=== PATIENT | female | born 1975 | race American Indian/Alaskan Native ===

== ENCOUNTER 2016-11-04 22:51 | Emergency (ER) | payer OTHER ==
[2016-11-04] MEDS: NORMODYNE IV ONE (23:50)
[2016-11-05 07:08] LABS: Basophils % (Auto) 0.8 % (0.0-1.8); Eosinophils % (Auto) 2.7 % (0.0-4.3); Hematocrit 38.8 % (30.3-42.9); Hemoglobin 12.8 gm/dl (10.1-14.3); Mean Corpuscular HGB Conc 33 % (30-34); Mean Corpuscular Hemoglobin 31 pg (28-32); Mean Corpuscular Volume 92 fl (79-97); Platelet Count 255 K/mm3 (140-440); Red Blood Count 4.22 M/mm3 (3.65-5.03); Red Cell Distribution Width 13.8 % (13.2-15.2); White Blood Count 8.5 K/mm3 (4.5-11.0)
[2016-11-05 07:17] LABS: Anion Gap 16 mmol/L; BUN/Creatinine Ratio 11.66; Blood Urea Nitrogen 7 mg/dL (7-17); Calcium 9.2 mg/dL (8.4-10.2); Carbon Dioxide 23 mmol/L (22-30); Chloride 102.3 mmol/L (98-107); Glucose 105 mg/dL (65-100); Potassium 3.6 mmol/L (3.6-5.0); Sodium 138 mmol/L (137-145)
--- NOTE | 2016-11-05 07:22 | Emergency Department Report ---
HPI - General Chief Complaint: Urogenital-Female Time Seen by Provider: 11/05/16 07:12 - [facility] HPI: Room 3 The patient is a 41-year-old female presenting with a chief complaint of "cyst pain." The patient states for the past 3 weeks she has had intermittent headache for 1 day she has had bilateral pelvic pain consistent with her previous pain from bilateral ovarian cysts. The patient states both pains have since resolved. Patient currently denies headache or pelvic pain. Patient admitted to nausea previously but denied vomiting. Patient denied any preceding fever or trauma associated with her headache. Patient denies vaginal discharge or vaginal bleeding. Location: Head, pelvis Duration: [see above] Quality: Pain Severity: Currently 0/10 Modifying factors: [see above] Context: [see above] Mode of transportation: [not driving] ED Past Medical Hx - Past Medical History Hx Hypertension: Yes - Surgical History Additional Surgical History: c section - Family History Family history: no significant - Social History Smoking Status: Current Every Day Smoker (1 pack per day) Substance Use Type: Alcohol (occasional) - Medications Home Medications: Home Medications Medication Instructions Recorded Confirmed Last Taken Type HYDROcodone/APAP 5-325 [[place] 1 - 2 each PO Q6HR PRN #10 tablet 11/05/16 Unknown Rx 5/325] Ibuprofen [Motrin 800 MG tab] 800 mg PO Q8HR PRN #20 tablet 11/05/16 Unknown Rx ED Review of Systems ROS: Stated complaint: PELVIC PAIN Other details as noted in HPI Comment: All other systems reviewed and negative Constitutional: denies: chills, fever Eyes: denies: eye pain, eye discharge, vision change ENT: denies: ear pain, throat pain Respiratory: denies: cough, shortness of breath, wheezing Cardiovascular: denies: chest pain, palpitations Endocrine: no symptoms reported Gastrointestinal: nausea. denies: vomiting Genitourinary: denies: urgency, dysuria, discharge Musculoskeletal: denies: back pain, joint swelling, arthralgia Skin: denies: rash, lesions Neurological: headache Psychiatric: denies: anxiety, depression Hematological/Lymphatic: denies: easy bleeding, easy bruising Physical Exam - Physical Exam Vital Signs: Vital Signs 11/04/16 11/04/16 11/05/16 23:14 23:50 02:22 Temperature 98.5 F Pulse Rate 95 H 90 80 Respiratory Rate Blood Pressure 166/123 166/123 Blood Pressure 170/111 [Left] O2 Sat by Pulse 97 Oximetry 11/05/16 06:36 Temperature 98.4 F Pulse Rate 89 Respiratory 18 Rate Blood Pressure Blood Pressure 146/101 [Left] O2 Sat by Pulse 100 Oximetry Physical Exam: GENERAL: The patient is well-developed well-nourished male lying on stretcher not appearing to be in acute distress. [] HEENT: Normocephalic. Atraumatic. Extraocular motions are intact. Patient has moist mucous membranes. NECK: Supple. He can midline CHEST/LUNGS: Clear to auscultation. There is no respiratory distress noted. HEART/CARDIOVASCULAR: Regular. There is no tachycardia. There is no gallop rub or murmur. ABDOMEN: Abdomen is soft, with tenderness to palpation in the left lower quadrant. There is no rebound or guarding. Patient has normal bowel sounds. There is no abdominal distention. SKIN: There is no rash. There is no edema. There is no diaphoresis. NEURO: The patient is awake, alert, and oriented. The patient is cooperative. The patient has normal speech MUSCULOSKELETAL: There is no evidence of acute injury. ED Course Vital Signs 11/04/16 11/04/16 11/05/16 23:14 23:50 02:22 Temperature 98.5 F Pulse Rate 95 H 90 80 Respiratory Rate Blood Pressure 166/123 166/123 Blood Pressure 170/111 [Left] O2 Sat by Pulse 97 Oximetry 11/05/16 06:36 Temperature 98.4 F Pulse Rate 89 Respiratory 18 Rate Blood Pressure Blood Pressure 146/101 [Left] O2 Sat by Pulse 100 Oximetry ED Medical Decision Making - Lab Data Result diagrams: 11/05/16 06:55 11/05/16 06:55 Laboratory Tests 11/05/16 11/05/16 11/05/16 06:49 06:55 06:55 WBC 8.5 RBC 4.22 Hgb 12.8 Hct 38.8 MCV 92 MCH 31 MCHC 33 RDW 13.8 Plt Count 255 Lymph % (Auto) 32.0 [place] % (Auto) 12.1 H Eos % (Auto) 2.7 Baso % (Auto) 0.8 Lymph # 2.7 [place] # 1.0 H Eos # 0.2 Baso # 0.1 Seg Neutrophils % 52.4 Seg Neutrophils # 4.5 Sodium 138 Potassium 3.6 Chloride 102.3 Carbon Dioxide 23 Anion Gap 16 BUN 7 Creatinine 0.6 L Estimated GFR > 60 BUN/Creatinine Ratio 11.66 Glucose 105 H Calcium 9.2 Urine Color Yellow Urine Turbidity Clear Urine pH 5.0 Ur Specific [place] 1.017 Urine Protein <15 mg/dl Urine Glucose (UA) Neg Urine Ketones Neg Urine Blood Neg Urine Nitrite Neg Ur Reducing Substances Not Reportable Urine Bilirubin Neg Urine Ictotest Not Reportable Urine Urobilinogen < 2.0 Ur Leukocyte Esterase Tr Urine WBC (Auto) 4.0 Urine RBC (Auto) 3.0 U Epithel Cells (Auto) 12.0 Urine Bacteria (Auto) 1+ Urine Mucus Few Urine HCG, Qual Negative - EKG Data -: EKG Interpreted by Me EKG shows normal: sinus rhythm Rate: normal - EKG Data When compared to previous EKG there are: previous EKG unavailable Interpretation: other (no ischemic changes seen) - Radiology Data Radiology results: report reviewed (CT abdomen and pelvis), image reviewed (CT abdomen and pelvis) CT abdomen and pelvis (read by radiologist)-1.7 cm slightly complex left ovarian cyst. Uterine fibroid. No acute inflammatory processes appreciated - Differential Diagnosis ovarian cysts, diverticulitis, gastroenteritis, UTI Critical care attestation.: If time is entered above; I have spent that time in minutes in the direct care of this critically ill patient, excluding procedure time. ED Disposition Clinical Impression: Abdominal pain, Left ovarian cyst, Uterine fibroid Disposition: DISCHARGED TO HOME OR SELFCARE Is pt being admited?: No Does the pt Need Aspirin: No Condition: Stable Instructions: Ovarian Cyst (ED), Uterine Fibroids (ED) Additional Instructions: Return to the emergency department immediately should you develop worsening symptoms, fever, inability to tolerate food or liquid or any other concerns. Prescriptions: HYDROcodone/APAP 5-325 [[place] 5/325] 1 - 2 each PO Q6HR PRN #10 tablet PRN Reason: Pain Ibuprofen [Motrin 800 MG tab] 800 mg PO Q8HR PRN #20 tablet PRN Reason: Pain Referrals: YOGI LEGER MD [Staff Physician] - 3-5 Days (Dr. Leger is an [employer]. Please follow up with him for further evaluation of your ovarian cyst and uterine fibroid) DAYAMI CROWE MD [Staff Physician] - 3-5 Days (Dr. Crowe his primary physician. Please follow up with him to be established as a patient) Time of Disposition: 09:17
[2016-11-05 08:14] LABS: Bacteria,Urine 1+ /HPF (Negative); Bilirubin,Urine NEG (Negative); Blood,Urine NEG (Negative); Ketones,Urine NEG (Negative); Leukocyte Esterase,Urine TR (Negative); Mucus,Urine FEW /HPF; Nitrite,Urine NEG (Negative); Protein,Urine <15 mg/dL mg/dL (Negative); Urobilinogen,Urine < 2.0 mg/dL (<2.0)
[2016-11-05] MEDS: NACL ONE (08:41)
--- NOTE | 2016-11-05 09:07 | Cat Scan Report ---
CT SCAN OF THE ABDOMEN AND PELVIS WITH CONTRAST: HISTORY: Left lower quadrant abdominal pain. TECHNIQUE: Helical CT in 1.25mm intervals following IV contrast. Sagittal and coronal reconstructions. FINDINGS: The liver is normal in size and is without focal defect. No gallstones or biliary dilatation are noted. The spleen and pancreas demonstrate a normal size and attenuation with no evidence of abnormal mass. The kidneys are normal in size and position with no evidence of hydronephrosis or mass. The adrenal glands are normal. There is no intestinal obstruction or ascites. Normal appendix. The abdominal aorta is normal. A subtle 2 cm area of enhancement along the left lateral wall of the uterus is identified consistent with a fibroid. There is also a 1.6 cm hyperdense or enhancing area in the left adnexa. This probably represents a slightly complex left ovarian cyst. The right adnexa is unremarkable. There is no evidence of peritoneal air or fluid. There is no evidence of any abnormal masses or fluid collections within the pelvis. No adenopathy is identified. The bladder is normal. IMPRESSION: 1.7 cm slightly complex left ovarian cyst. Uterine fibroid. No acute inflammatory process is appreciated.
[2016-11-05 09:39] VITALS: BP 124/87
== END 2016-11-05 09:18 | disposition home or self-care (01) ==
LOC: ED 22:51
DX: N83.202 Unspecified ovarian cyst, left side (principal); D25.9 Leiomyoma of uterus, unspecified; R10.32 Left lower quadrant pain; I10 Essential (primary) hypertension; F17.210 Nicotine dependence, cigarettes, uncomplicated
CPT/HCPCS: 36415; 74177; 80048; 81001; 81025; 85025; 93005; 93010; 96374; 99284; Q9967

== ENCOUNTER 2017-04-25 19:15 | Emergency (ER) | payer SELFPAY ==
[2017-04-25 19:50] VITALS: BP 159/116
== END 2017-04-25 20:52 | disposition left against medical advice (07) ==
LOC: ED 19:15
DX: R07.9 Chest pain, unspecified (principal); Z53.21 Procedure and treatment not carried out due to patient leaving prior to being seen by health care provider
CPT/HCPCS: 93005; 93010

== ENCOUNTER 2017-05-05 18:25 | Inpatient (IN) | payer OTHER ==
[2017-05-05] MEDS ORDERED: NACL 0.9% 1000 ML 1,000 ML IV ONE ×3 (20:49→23:31)
[2017-05-05] MEDS ORDERED: TORADOL IV ONE (20:58)
[2017-05-05 22:13] LABS: Hematocrit 35.6 % (30.3-42.9); Hemoglobin 11.4 gm/dl (10.1-14.3); Mean Corpuscular HGB Conc 32 % (30-34); Mean Corpuscular Hemoglobin 31 pg (28-32); Mean Corpuscular Volume 97 fl (79-97); Platelet Count 198 K/mm3 (140-440); Red Blood Count 3.66 M/mm3 (3.65-5.03); Red Cell Distribution Width 14.3 % (13.2-15.2)
[2017-05-05 22:21] LABS: Albumin 2.8 g/dL (3.9-5); Albumin/Globulin Ratio 0.7 %; Bilirubin,Total 0.5 mg/dL (0.1-1.2); Calcium 8.5 mg/dL (8.4-10.2); Chloride 97.4 mmol/L (98-107); Potassium 3.4 mmol/L (3.6-5.0); Total Protein 6.8 g/dL (6.3-8.2)
[2017-05-05 22:22] LABS: White Blood Count 22.3 K/mm3 (4.5-11.0)
[2017-05-05 22:55] LABS: Basophils % (Manual) 0 % (0.0-1.8); Blastocytes % (Manual) 0 %; Eosinophils % (Manual) 0 % (0.0-4.3)
[2017-05-05 22:56] LABS: Anisocytosis 1+; Diff Status Complete; Ovalocytes Few; Platelet Estimate Consistent w Auto
--- NOTE | 2017-05-05 23:24 | Emergency Department Report ---
ED Fever HPI - General Chief Complaint: Pain General Stated Complaint: FEVER/DIZZY/BODY HURTS Time Seen by Provider: 05/05/17 20:47 Source: patient Exam Limitations: no limitations - History of Present Illness Initial Comments: 42-year-old female with a past history hypertension presents to hospital complaining of fevers, body aches, dizziness the past 4 days. patient has pain from the neck down to her back. pain is aching, rated 8/10 intensity, worse on movement and palpation, no alleviating factors. Patient denies sick contacts, recent travel, cough, sore throat, shortness of breath, nausea, vomiting, diarrhea, dysuria, or hematuria. bilateral flank, back, and right abdominal tenderness reported. pv surgical history only for . patient has not been on blood pressure medication for at least 2 years. Patient also admitted to daily alcohol use with history of alcohol withdrawal tremors. His last drink was 4 days ago per ED Review of Systems ROS: Stated complaint: FEVER/DIZZY/BODY HURTS Other details as noted in HPI Comment: All other systems reviewed and negative Other: Constitutional: as per hpi Eyes: No eye pain visual changes or discharge ENT: No ear pain or throat pain Neck: Denies pain Respiratory: Denies cough wheezing shortness of breath Cardiovascular: Denies chest pain, palpitations, syncope GI: Denies anausea, vomiting, diarrhea : Denies dysuria Musculoskeletal: as per hpi Skin: Denies rash, lesions, erythema Neurologic: Denies headache, numbness, focal weakness Psychiatric: Denies suicidal ideation, hallucinations ED Past Medical Hx - Past Medical History Previous Medical History?: Yes Hx Hypertension: Yes - Surgical History Past Surgical History?: Yes Additional Surgical History: c section - Social History Smoking Status: Current Every Day Smoker Substance Use Type: Alcohol - Medications Home Medications: Home Medications Medication Instructions Recorded Confirmed Last Taken Type HYDROcodone/APAP 5-325 [[place] 1 - 2 each PO Q6HR PRN #10 tablet 11/05/16 Unknown Rx 5/325] Ibuprofen [Motrin 800 MG tab] 800 mg PO Q8HR PRN #20 tablet 11/05/16 Unknown Rx ED Physical Exam - General Limitations: No Limitations - Other Other exam information: General: No limitations, patient is alert in no acute distress Head exam: Atraumatic, normocephalic Eyes exam: Normal appearance ENT: Moist mucous membrane, normal oropharynx Neck exam: Normal inspection, full range of motion, no meningismus/no, rigidity , nontender Respiratory exam: Clear to auscultation bilateral, no wheezes, rales, crackles Cardiovascular: Normal rate and rhythm, normal heart sounds Abdomen: Soft, nondistended, right lower, mid, and left lower tenderness, with normal bowel sounds, no rebound, or guarding Extremity: Full range of motion normal inspection no deformity Back: Normal Inspection, full range of motion, bilateral flank tenderness without midline tenderness Neurologic: Alert, oriented x3, cranial nerves intact, no motor or sensory deficit Psychiatric: normal affect, normal mood Skin: Warm, dry, intact ED Course Vital Signs 05/05/17 05/05/17 05/05/17 20:24 21:37 23:34 Temperature 97.6 F 97.9 F Pulse Rate 98 H 86 Respiratory 16 16 Rate Blood Pressure 87/59 Blood Pressure 101/61 [Left] O2 Sat by Pulse 98 100 Oximetry - Reevaluation(s) Reevaluation #1: 05/06/17 01:03 Urine collected at this time and pending. BP greater than 100 after 2 L of normal saline ED Medical Decision Making - Lab Data Result diagrams: 05/05/17 21:30 05/05/17 21:30 Lab Results 05/05/17 05/05/17 05/05/17 Range/Units 21:30 21:30 21:30 WBC 22.3 H (4.5-11.0) K/mm3 RBC 3.66 (3.65-5.03) M/mm3 Hgb 11.4 (10.1-14.3) gm/dl Hct 35.6 (30.3-42.9) % MCV 97 (79-97) fl MCH 31 (28-32) pg MCHC 32 (30-34) % RDW 14.3 (13.2-15.2) % Plt Count 198 (140-440) K/mm3 Add Manual Diff Complete Total Counted 100 Seg Neuts % (Manual) 50.0 (40.0-70.0) % Band Neutrophils % 38.0 % Lymphocytes % (Manual) 3.0 L (13.4-35.0) % Reactive Lymphs % (Man) 0 % Monocytes % (Manual) 8.0 H (0.0-7.3) % Eosinophils % (Manual) 0 (0.0-4.3) % Basophils % (Manual) 0 (0.0-1.8) % Metamyelocytes % 1.0 % Myelocytes % 0 % Promyelocytes % 0 % Blast Cells % 0 % Nucleated RBC % Not Reportable Seg Neutrophils # Man 11.2 H (1.8-7.7) K/mm3 Band Neutrophils # 8.5 K/mm3 Lymphocytes # (Manual) 0.7 L (1.2-5.4) K/mm3 Abs React Lymphs (Man) 0.0 K/mm3 Monocytes # (Manual) 1.8 H (0.0-0.8) K/mm3 Eosinophils # (Manual) 0.0 (0.0-0.4) K/mm3 Basophils # (Manual) 0.0 (0.0-0.1) K/mm3 Metamyelocytes # 0.2 K/mm3 Myelocytes # 0.0 K/mm3 Promyelocytes # 0.0 K/mm3 Blast Cells # 0.0 K/mm3 WBC Morphology Not Reportable Hypersegmented Neuts Not Reportable Hyposegmented Neuts Not Reportable Hypogranular Neuts Not Reportable Smudge Cells Not Reportable Toxic Granulation Not Reportable Toxic Vacuolation Not Reportable Dohle Bodies Not Reportable Pelger-Huet Anomaly Not Reportable [place] Rods Not Reportable Platelet Estimate Consistent w auto Clumped Platelets Not Reportable Plt Clumps, EDTA Not Reportable Large Platelets Not Reportable Giant Platelets Not Reportable Platelet Satelliting Not Reportable Plt Morphology Comment Not Reportable RBC Morphology Not Reportable Dimorphic RBCs Not Reportable Polychromasia Not Reportable Hypochromasia Not Reportable Poikilocytosis Not Reportable Anisocytosis 1+ Microcytosis Not Reportable Macrocytosis Not Reportable Spherocytes Not Reportable Pappenheimer Bodies Not Reportable Sickle Cells Not Reportable Target Cells Not Reportable Tear Drop Cells Not Reportable Ovalocytes Few Helmet Cells Not Reportable Mullins-Gann Bodies Not Reportable [place] Rings Not Reportable Karie Cells Not Reportable Bite Cells Not Reportable Crenated Cell Not Reportable Elliptocytes Not Reportable Acanthocytes (Spur) Not Reportable Rouleaux Not Reportable Hemoglobin C Crystals Not Reportable Schistocytes Not Reportable Malaria parasites Not Reportable Javier Bodies Not Reportable Hem Pathologist Commnt No VBG pH (7.320-7.420) Sodium 135 L (137-145) mmol/L Potassium 3.4 L (3.6-5.0) mmol/L Chloride 97.4 L (98-107) mmol/L Carbon Dioxide 20 L (22-30) mmol/L Anion Gap 21 mmol/L BUN 25 H (7-17) mg/dL Creatinine 2.0 H (0.7-1.2) mg/dL Estimated GFR 33 ml/min BUN/Creatinine Ratio 13 % Glucose 116 H (65-100) mg/dL Lactic Acid 2.70 H* (0.7-2.0) mmol/L Calcium 8.5 (8.4-10.2) mg/dL Magnesium (1.7-2.3) mg/dL Total Bilirubin 0.50 (0.1-1.2) mg/dL AST 71 H (5-40) units/L ALT 77 H (7-56) units/L Alkaline Phosphatase 85 (35-129) units/L Total Protein 6.8 (6.3-8.2) g/dL Albumin 2.8 L (3.9-5) g/dL Albumin/Globulin Ratio 0.7 % HCG, Qual (Negative) 05/05/17 05/05/17 05/05/17 Range/Units 21:30 21:30 21:30 WBC (4.5-11.0) K/mm3 RBC (3.65-5.03) M/mm3 Hgb (10.1-14.3) gm/dl Hct (30.3-42.9) % MCV (79-97) fl MCH (28-32) pg MCHC (30-34) % RDW (13.2-15.2) % Plt Count (140-440) K/mm3 Add Manual Diff Total Counted Seg Neuts % (Manual) (40.0-70.0) % Band Neutrophils % % Lymphocytes % (Manual) (13.4-35.0) % Reactive Lymphs % (Man) % Monocytes % (Manual) (0.0-7.3) % Eosinophils % (Manual) (0.0-4.3) % Basophils % (Manual) (0.0-1.8) % Metamyelocytes % % Myelocytes % % Promyelocytes % % Blast Cells % % Nucleated RBC % Seg Neutrophils # Man (1.8-7.7) K/mm3 Band Neutrophils # K/mm3 Lymphocytes # (Manual) (1.2-5.4) K/mm3 Abs React Lymphs (Man) K/mm3 Monocytes # (Manual) (0.0-0.8) K/mm3 Eosinophils # (Manual) (0.0-0.4) K/mm3 Basophils # (Manual) (0.0-0.1) K/mm3 Metamyelocytes # K/mm3 Myelocytes # K/mm3 Promyelocytes # K/mm3 Blast Cells # K/mm3 WBC Morphology Hypersegmented Neuts Hyposegmented Neuts Hypogranular Neuts Smudge Cells Toxic Granulation Toxic Vacuolation Dohle Bodies Pelger-Huet Anomaly Estella Rods Platelet Estimate Clumped Platelets Plt Clumps, EDTA Large Platelets Giant Platelets Platelet Satelliting Plt Morphology Comment RBC Morphology Dimorphic RBCs Polychromasia Hypochromasia Poikilocytosis Anisocytosis Microcytosis Macrocytosis Spherocytes Pappenheimer Bodies Sickle Cells Target Cells Tear Drop Cells Ovalocytes Helmet Cells Mullins-Gann Bodies [place] Cells Bite Cells Crenated Cell Elliptocytes Acanthocytes (Spur) Rouleaux Hemoglobin C Crystals Schistocytes Malaria parasites Javier Bodies Hem Pathologist Commnt VBG pH 7.354 (7.320-7.420) Sodium (137-145) mmol/L Potassium (3.6-5.0) mmol/L Chloride (98-107) mmol/L Carbon Dioxide (22-30) mmol/L Anion Gap mmol/L BUN (7-17) mg/dL Creatinine (0.7-1.2) mg/dL Estimated GFR ml/min BUN/Creatinine Ratio % Glucose (65-100) mg/dL Lactic Acid (0.7-2.0) mmol/L Calcium (8.4-10.2) mg/dL Magnesium 2.00 (1.7-2.3) mg/dL Total Bilirubin (0.1-1.2) mg/dL AST (5-40) units/L ALT (7-56) units/L Alkaline Phosphatase (35-129) units/L Total Protein (6.3-8.2) g/dL Albumin (3.9-5) g/dL Albumin/Globulin Ratio % HCG, Qual Negative (Negative) - Radiology Data Radiology results: report reviewed CT pelvis noncontrast: No renal calculi. Perinephric stranding is seen on the right side suggestive of pyelonephritis in the proper clinical setting - Medical Decision Making Patient be admitted to hospital for pyelonephritis with signs of early sepsis. Blood pressure has improved with IV fluids. Zosyn ordered. Cultures pending. Delay in urine since patient has been able to produce a significant urine output after 2 L of normal saline. 3 L total given. Patient also has acute renal insufficiency compared to previous labs earlier this month. One dose of by mouth potassium also ordered for hypokalemia. Magnesium is normal. Elevated LFTs likely secondary to chronic daily alcohol use. - Differential Diagnosis sepsis, UTI, appendicitis, diverticulitis, PID, viral syndrome Critical Care Time: No Critical care attestation.: If time is entered above; I have spent that time in minutes in the direct care of this critically ill patient, excluding procedure time. ED Disposition Clinical Impression: Pyelonephritis, Sepsis, Acute renal insufficiency, Daily consumption of alcohol , LFT elevation, Hypokalemia Disposition: OP ADMIT IP TO THIS HOSP Is pt being admited?: Yes Condition: Stable Time of Disposition: 00:59 (Dr Johns/hosp)
--- NOTE | 2017-05-05 23:48 | Cat Scan Report ---
FINAL REPORT EXAM: CT ABDOMEN PELVIS WO CON HISTORY: lower abd pain R\T\gt; : TECHNIQUE: Serial axial images through the abdomen and pelvis with coronal and sagittal reconstruction. PRIORS: CT abdomen pelvis from 05/05/2017 FINDINGS: Lung bases are clear. No pleural effusion is seen. No focal hepatic lesion is identified. Pancreas appears normal. Spleen appears normal. Adrenal glands appear normal. Gastric diverticulum is seen arising from the posterior aspect of the proximal stomach. No renal calculi are identified. No stones are seen along the course of ureters. There is asymmetric perinephric stranding on the right side. Aorta is normal in caliber. No gross abnormality is seen in the bladder. No gross abnormality is seen in the uterus or adnexa. No free fluid. Scattered diverticula are seen arising from the colon. Appendix appears normal. No acute osseous abnormality is identified. IMPRESSION: 1. No renal calculi are identified. 2. Paranephric stranding is seen on the right side. Findings could indicate pyelonephritis in the proper clinical setting. Correlation with laboratory values is necessary.
[2017-05-06] MEDS ORDERED: ZOSYN/NS 4.5GM/100ML 4.5 GM/100 ML VIAL IV ONE (00:12)
[2017-05-06] MEDS ORDERED: K-DUR PO ONE ×2 (00:55→14:00)
[2017-05-06 01:32] LABS: Bilirubin,Urine NEG (Negative); Blood,Urine MOD (Negative); Ketones,Urine TR mg/dL (Negative); Leukocyte Esterase,Urine LG (Negative); Mucus,Urine FEW /HPF; Nitrite,Urine POS (Negative); Urobilinogen,Urine < 2.0 mg/dL (<2.0)
[2017-05-06] MEDS ORDERED: MILK OF MAGNESIA PO PRN (04:19)
[2017-05-06] MEDS ORDERED: ZOFRAN IV PRN (04:19)
[2017-05-06] MEDS ORDERED: DULCOLAX PR PRN (04:19)
--- NOTE | 2017-05-06 06:06 | History and Physical Report ---
History of Present Illness Date of examination: 05/06/17 Date of admission: 05/06/17 04:19 History of present illness: 42-year-old woman history of hypertension comes emergency room with complaints of lower back pain hurting her but started on , also complaining of suprapubic tenderness, fever and chills. Today she developed right flank pain, denies dysuria, frequency Review Of Systems: Constitutional: no weight loss Ears, eyes, nose, mouth and throat: no nasal congestion, no nasal discharge, no sinus pressure, blurry vision, diplopia Neck: No neck pain or rigidity. Cardiovascular: chest pain, orthopnea, palpitations Respiratory: No shortness of breath, cough Gastrointestinal: abdominal pain, hematochezia Genitourinary : no dysuria, frequency , hematuria Musculoskeletal: no muscle ache Integumentary: no rash, no pruritis Neurological: no parathesias, focal weakness Endocrine: no cold or heat intolerance, no polyuria or polydipsia Hematologic/Lymphatic: no easy bruising, no easy bleeding, no gland swelling Allergic/Immunologic: no urticaria, no angioedema. PAST MEDICAL HISTORY:hypertension PAST SURGICAL HISTORY: FAMILY HISTORY:hypertension SOCIAL HISTORY: Smoked 2 packs of cigarettes a day, social alcohol, no drugs Medications and Allergies Allergies Allergy/AdvReac Type Severity Reaction Status Date / Time No Known Allergies Allergy Verified 04/25/17 19:41 Home Medications Medication Instructions Recorded Confirmed Last Taken Type HYDROcodone/APAP 5-325 [[place] 1 - 2 each PO Q6HR PRN #10 tablet 11/05/16 Unknown Rx 5/325] Ibuprofen [Motrin 800 MG tab] 800 mg PO Q8HR PRN #20 tablet 11/05/16 Unknown Rx Active Meds: Active Medications Acetaminophen (Tylenol) 650 mg PO Q4H PRN PRN Reason: Pain MILD(1-3)/Fever >100.5/[place] Bisacodyl (Dulcolax) 10 mg [place] QDAY PRN PRN Reason: Constipation unrelieved by MOM Enoxaparin Sodium (Lovenox) 30 mg SUB-Q QDAY [place] Sodium Chloride (Nacl 0.9% 1000 Ml) 1,000 mls @ 125 mls/hr IV DIRECT [place] Ceftriaxone Sodium (Rocephin/Ns 1 Gm/50 Ml) 1 gm in 50 mls @ 100 mls/hr IV Q24HR [place] PRN Reason: Protocol Magnesium Hydroxide (Milk Of Magnesia) 30 ml PO Q4H PRN PRN Reason: Constipation Ondansetron HCl (Zofran) 4 mg IV Q8H PRN PRN Reason: N/V unrelieved by Reglan Oxycodone/Acetaminophen (Percocet 5/325) 1 tab PO Q6H PRN PRN Reason: Pain, Moderate (4-6) Exam - Physical Exam Narrative exam: Gen. appearance: Patient lying in bed in no acute distress HEENT: Normocephalic/atraumatic, pupils equal round reactive to light, extra alkaline movement intact, no scleral icterus, no JVD or thyromegaly or nodule, neck is supple, mucous membrane moist, no erythema or exudate Heart: S1-S2, regular rate and rhythm Lungs: Clear to auscultation bilateral breathing comfortable Abdomen: Positive bowel sounds, nontender, nondistended, no organomegaly Extremities:+ Right CVA tenderness, No edema, cyanosis, clubbing Neuro:: Oriented 3 , cranial nerves II-12 intact, speech, motor intact Skin: No rash, nodules, warm dry - Constitutional Vitals: Temp Pulse Resp BP Pulse Ox 97.9 F 86 16 101/61 100 05/05/17 23:34 05/05/17 23:34 05/05/17 23:34 05/05/17 23:34 05/05/17 23:34 Results - Labs CBC & Chem 7: 05/05/17 21:30 05/05/17 21:30 - Imaging and Cardiology CT scan - abdomen: report reviewed CT scan - pelvis: report reviewed Assessment and Plan Assessment Septic shock Pyelonephritis Acute renal failure Plan Admit to medicine Start IV fluid, IV Rocephin and follow cultures, kidney function DVT prophylaxis
[2017-05-06] MEDS ORDERED: TYLENOL ONE (06:23)
[2017-05-06] MEDS ORDERED: NACL 0.9% 1000 ML 1,000 ML ONE (06:24)
[2017-05-06] MEDS: TYLENOL PO PRN ×3 (06:32→23:38)
[2017-05-06] MEDS: NACL 0.9% 1000 ML 1,000 ML IV SCH ×2 (06:33→13:56)
[2017-05-06] MEDS ORDERED: NACL 0.9% 500 ML 500 ML IV ONE (06:42)
[2017-05-06] MEDS ORDERED: NACL 0.9% 500 ML 500 ML ONE (06:44)
[2017-05-06] MEDS ORDERED: LOVENOX SUB-Q SCH (10:00)
[2017-05-06] MEDS: ROCEPHIN/NS 1 GM/50 ML 1 GM/50 ML BAG IV SCH (10:18)
[2017-05-06 11:00] LABS: Chloride 103.5 mmol/L (98-107); Potassium 3.4 mmol/L (3.6-5.0)
[2017-05-06] MEDS ORDERED: ATIVAN IV PRN ×2 (13:17)
[2017-05-06] MEDS: PERCOCET 5/325 PO PRN ×2 (14:00→21:49)
--- NOTE | 2017-05-06 16:43 | Event Note ---
Date: 05/06/17 patient seen and examined, stable at this time. will continue to monitor. she also states that she drinks alcohol and often has tremors when not drinking. will start on CIWA protocol. Renal function is improving.
[2017-05-07] MEDS: NACL 0.9% 1000 ML 1,000 ML IV SCH ×3 (01:58→15:32)
[2017-05-07] MEDS: TYLENOL PO PRN ×2 (05:34→15:24)
[2017-05-07 05:39] LABS: Basophils % (Auto) 0.2 % (0.0-1.8); Eosinophils % (Auto) 0.2 % (0.0-4.3); Hematocrit 34.4 % (30.3-42.9); Hemoglobin 11.7 gm/dl (10.1-14.3); Mean Corpuscular HGB Conc 34 % (30-34); Mean Corpuscular Hemoglobin 32 pg (28-32); Mean Corpuscular Volume 95 fl (79-97); Platelet Count 247 K/mm3 (140-440); Red Blood Count 3.62 M/mm3 (3.65-5.03); Red Cell Distribution Width 15.1 % (13.2-15.2); White Blood Count 17.2 K/mm3 (4.5-11.0)
[2017-05-07 05:58] LABS: Anion Gap 18 mmol/L; BUN/Creatinine Ratio 14; Blood Urea Nitrogen 13 mg/dL (7-17); Calcium 8.9 mg/dL (8.4-10.2); Carbon Dioxide 21 mmol/L (22-30); Chloride 104.3 mmol/L (98-107); Glucose 86 mg/dL (65-100); Sodium 139 mmol/L (137-145)
[2017-05-07] MEDS ORDERED: MORPHINE IM ONE (06:35)
[2017-05-07 07:23] LABS: Creatine Kinase 22 units/L (30-135)
[2017-05-07 07:39] LABS: Creatine Kinase MB < 1.0 ng/mL (0.0-4.0)
--- NOTE | 2017-05-07 09:55 | Progress Note ---
Assessment and Plan Assessment and plan: Patient is a 42-year-old woman history of hypertension, etoh and tobacco dependence admitted with sepsis secondary to Pylonephritis after she presented to the ER with complaints of lower back pain hurting her but started on , also complaining of suprapubic tenderness, fever and chills and subsequently developed right flank pain, denies dysuria, frequency Septic shock * POA * Required multiple volume resuscitation * Still with intermittent fever. We'll obtain infectious disease input. * Leukocytosis improvement shock resolved. Tolerating by mouth. * Continue supportive care, IV abx Pyelonephritis * Continue Rocephin, still with low grade fever, await culture results. Peritoneal Irritation * Secondary to Pyelonephritis * Supportive care Acute Kidney injury Secondary to Vasomotor Nephropathy * Continue fluids. * Resolved ETOH dependence with hx of Tremors when sober * Continue CIWA protocol Tobacco Abuse * Extensive counselling provided to quit patient wants to quite ETOH 1st. 15 mins spent on counselling * Mild to Moderate Protein calorie malnutrition * Nutrition consult DVT/GI prophy Plan discussed with patient and family in detail History Interval history: Patient is examined in no acute distress though running fever despite improved lap problems. Denies any nausea vomiting or diarrhea. Hospitalist Physical - Physical exam Narrative exam: VITAL SIGNS: Reviewed. GENERAL: The patient appeared well nourished and normally developed. Vital signs as documented. HEAD: No signs of head trauma. EYES: Pupils are equal. Extraocular motions intact. EARS: Hearing grossly intact. MOUTH: Oropharynx is normal. NECK: No adenopathy, no JVD. CHEST: Chest with clear breath sounds bilaterally. No wheezes, rales, or rhonchi. CARDIAC: Regular rate and rhythm. S1 and S2, without murmurs, gallops, or rubs. VASCULAR: No Edema. Peripheral pulses normal and equal in all extremities. ABDOMEN: Soft, left flank tenderness.. No sign of distention. No rebound or guarding, and no masses palpated. Bowel Sounds normal. MUSCULOSKELETAL: Good range of motion of all major joints. Extremities without clubbing, cyanosis or edema. NEUROLOGIC EXAM: Alert and oriented x 3. No focal sensory or strength deficits. Speech normal. Follows commands. PSYCHIATRIC: Mood normal. SKIN: No rash or lesions. - Constitutional Vitals: Temp Pulse Resp BP Pulse Ox 100.0 F H 105 H 20 123/82 98 05/07/17 07:12 05/07/17 07:12 05/07/17 07:12 05/07/17 07:12 05/07/17 07:12 Results - Labs CBC & Chem 7: 05/07/17 05:03 05/07/17 05:03 Labs: Laboratory Last Values WBC 17.2 K/mm3 (4.5-11.0) H 05/07/17 05:03 RBC 3.62 M/mm3 (3.65-5.03) L 05/07/17 05:03 Hgb 11.7 gm/dl (10.1-14.3) 05/07/17 05:03 Hct 34.4 % (30.3-42.9) 05/07/17 05:03 MCV 95 fl (79-97) 05/07/17 05:03 MCH 32 pg (28-32) 05/07/17 05:03 MCHC 34 % (30-34) 05/07/17 05:03 RDW 15.1 % (13.2-15.2) 05/07/17 05:03 Plt Count 247 K/mm3 (140-440) 05/07/17 05:03 Lymph % (Auto) 6.7 % (13.4-35.0) L 05/07/17 05:03 [place] % (Auto) 11.7 % (0.0-7.3) H 05/07/17 05:03 Eos % (Auto) 0.2 % (0.0-4.3) 05/07/17 05:03 Baso % (Auto) 0.2 % (0.0-1.8) 05/07/17 05:03 Lymph # 1.2 K/mm3 (1.2-5.4) 05/07/17 05:03 [place] # 2.0 K/mm3 (0.0-0.8) H 05/07/17 05:03 Eos # 0.0 K/mm3 (0.0-0.4) 05/07/17 05:03 Baso # 0.0 K/mm3 (0.0-0.1) 05/07/17 05:03 Add Manual Diff Complete 05/05/17 21:30 Total Counted 100 05/05/17 21:30 Seg Neutrophils % 81.2 % (40.0-70.0) H 05/07/17 05:03 Seg Neuts % (Manual) 50.0 % (40.0-70.0) 05/05/17 21:30 Band Neutrophils % 38.0 % 05/05/17 21:30 Lymphocytes % (Manual) 3.0 % (13.4-35.0) L 05/05/17 21:30 Reactive Lymphs % (Man) 0 % 05/05/17 21:30 Monocytes % (Manual) 8.0 % (0.0-7.3) H 05/05/17 21:30 Eosinophils % (Manual) 0 % (0.0-4.3) 05/05/17 21:30 Basophils % (Manual) 0 % (0.0-1.8) 05/05/17 21:30 Metamyelocytes % 1.0 % 05/05/17 21:30 Myelocytes % 0 % 05/05/17 21:30 Promyelocytes % 0 % 05/05/17 21:30 Blast Cells % 0 % 05/05/17 21:30 Nucleated RBC % Not Reportable 05/05/17 21:30 Seg Neutrophils # 14.0 K/mm3 (1.8-7.7) H 05/07/17 05:03 Seg Neutrophils # Man 11.2 K/mm3 (1.8-7.7) H 05/05/17 21:30 Band Neutrophils # 8.5 K/mm3 05/05/17 21:30 Lymphocytes # (Manual) 0.7 K/mm3 (1.2-5.4) L 05/05/17 21:30 Abs React Lymphs (Man) 0.0 K/mm3 05/05/17 21:30 Monocytes # (Manual) 1.8 K/mm3 (0.0-0.8) H 05/05/17 21:30 Eosinophils # (Manual) 0.0 K/mm3 (0.0-0.4) 05/05/17 21:30 Basophils # (Manual) 0.0 K/mm3 (0.0-0.1) 05/05/17 21:30 Metamyelocytes # 0.2 K/mm3 05/05/17 21:30 Myelocytes # 0.0 K/mm3 05/05/17 21:30 Promyelocytes # 0.0 K/mm3 05/05/17 21:30 Blast Cells # 0.0 K/mm3 05/05/17 21:30 WBC Morphology Not Reportable 05/05/17 21:30 Hypersegmented Neuts Not Reportable 05/05/17 21:30 Hyposegmented Neuts Not Reportable 05/05/17 21:30 Hypogranular Neuts Not Reportable 05/05/17 21:30 Smudge Cells Not Reportable 05/05/17 21:30 Toxic Granulation Not Reportable 05/05/17 21:30 Toxic Vacuolation Not Reportable 05/05/17 21:30 Dohle Bodies Not Reportable 05/05/17 21:30 Pelger-Huet Anomaly Not Reportable 05/05/17 21:30 Estella Rods Not Reportable 05/05/17 21:30 Platelet Estimate Consistent w auto 05/05/17 21:30 Clumped Platelets Not Reportable 05/05/17 21:30 Plt Clumps, EDTA Not Reportable 05/05/17 21:30 Large Platelets Not Reportable 05/05/17 21:30 Giant Platelets Not Reportable 05/05/17 21:30 Platelet Satelliting Not Reportable 05/05/17 21:30 Plt Morphology Comment Not Reportable 05/05/17 21:30 RBC Morphology Not Reportable 05/05/17 21:30 Dimorphic RBCs Not Reportable 05/05/17 21:30 Polychromasia Not Reportable 05/05/17 21:30 Hypochromasia Not Reportable 05/05/17 21:30 Poikilocytosis Not Reportable 05/05/17 21:30 Anisocytosis 1+ 05/05/17 21:30 Microcytosis Not Reportable 05/05/17 21:30 Macrocytosis Not Reportable 05/05/17 21:30 Spherocytes Not Reportable 05/05/17 21:30 Pappenheimer Bodies Not Reportable 05/05/17 21:30 Sickle Cells Not Reportable 05/05/17 21:30 Target Cells Not Reportable 05/05/17 21:30 Tear Drop Cells Not Reportable 05/05/17 21:30 Ovalocytes Few 05/05/17 21:30 Helmet Cells Not Reportable 05/05/17 21:30 [place] Bodies Not Reportable 05/05/17 21:30 [place] Rings Not Reportable 05/05/17 21:30 [place] Cells Not Reportable 05/05/17 21:30 Bite Cells Not Reportable 05/05/17 21:30 Crenated Cell Not Reportable 05/05/17 21:30 Elliptocytes Not Reportable 05/05/17 21:30 Acanthocytes (Spur) Not Reportable 05/05/17 21:30 Rouleaux Not Reportable 05/05/17 21:30 Hemoglobin C Crystals Not Reportable 05/05/17 21:30 Schistocytes Not Reportable 05/05/17 21:30 Malaria parasites Not Reportable 05/05/17 21:30 Javier Bodies Not Reportable 05/05/17 21:30 Hem Pathologist Commnt No 05/05/17 21:30 VBG pH 7.354 (7.320-7.420) 05/05/17 21:30 Sodium 139 mmol/L (137-145) 05/07/17 05:03 Potassium 4.0 mmol/L (3.6-5.0) 05/07/17 05:03 Chloride 104.3 mmol/L (98-107) 05/07/17 05:03 Carbon Dioxide 21 mmol/L (22-30) L 05/07/17 05:03 Anion Gap 18 mmol/L 05/07/17 05:03 BUN 13 mg/dL (7-17) 05/07/17 05:03 Creatinine 0.9 mg/dL (0.7-1.2) 05/07/17 05:03 Estimated GFR > 60 ml/min 05/07/17 05:03 BUN/Creatinine Ratio 14 % 05/07/17 05:03 Glucose 86 mg/dL (65-100) 05/07/17 05:03 Lactic Acid 1.80 mmol/L (0.7-2.0) 05/07/17 05:03 Calcium 8.9 mg/dL (8.4-10.2) 05/07/17 05:03 Magnesium 2.00 mg/dL (1.7-2.3) 05/05/17 21:30 Total Bilirubin 0.50 mg/dL (0.1-1.2) 05/05/17 21:30 AST 71 units/L (5-40) H 05/05/17 21:30 ALT 77 units/L (7-56) H 05/05/17 21:30 Alkaline Phosphatase 85 units/L (35-129) 05/05/17 21:30 Total Creatine Kinase 22 units/L (30-135) L 05/07/17 05:03 CK-MB (CK-2) < 1.0 ng/mL (0.0-4.0) 05/07/17 05:03 CK-MB (CK-2) Rel Index 4.5 (0-4) H 05/07/17 05:03 Total Protein 6.8 g/dL (6.3-8.2) 05/05/17 21:30 Albumin 2.8 g/dL (3.9-5) L 05/05/17 21:30 Albumin/Globulin Ratio 0.7 % 05/05/17 21:30 HCG, Qual Negative (Negative) 05/05/17 21:30 Urine Color Yellow (Yellow) 05/05/17 01:08 Urine Turbidity Clear (Clear) 05/05/17 01:08 Urine pH 5.0 (5.0-7.0) 05/05/17 01:08 Ur Specific [place] 1.015 (1.003-1.030) 05/05/17 01:08 Urine Protein 100 mg/dl mg/dL (Negative) 05/05/17 01:08 Urine Glucose (UA) Neg mg/dL (Negative) 05/05/17 01:08 Urine Ketones Tr mg/dL (Negative) 05/05/17 01:08 Urine Blood Mod (Negative) 05/05/17 01:08 Urine Nitrite Pos (Negative) 05/05/17 01:08 Urine Bilirubin Neg (Negative) 05/05/17 01:08 Urine Urobilinogen < 2.0 mg/dL (<2.0) 05/05/17 01:08 Ur Leukocyte Esterase Lg (Negative) 05/05/17 01:08 Urine WBC (Auto) 85.0 /HPF (0.0-6.0) H 05/05/17 01:08 Urine RBC (Auto) 4.0 /HPF (0.0-6.0) 05/05/17 01:08 U Epithel Cells (Auto) 3.0 /HPF (0-13.0) 05/05/17 01:08 Urine WBC Clumps Few /HPF 05/05/17 01:08 Ur Transition Epith Cell < 1 /HPF 05/05/17 01:08 Urine Mucus Few /HPF 05/05/17 01:08
[2017-05-07] MEDS: ROCEPHIN/NS 1 GM/50 ML 1 GM/50 ML BAG IV SCH (10:31)
[2017-05-07] MEDS: LOVENOX SUB-Q SCH (10:33)
[2017-05-07] MEDS ORDERED: Fluarix Quad 2017-2018(36 MOS+) IM ONE (12:00)
[2017-05-08] MEDS: NACL 0.9% 1000 ML 1,000 ML IV SCH ×3 (00:15→17:28)
[2017-05-08] MEDS: TYLENOL PO PRN (00:17)
[2017-05-08 06:18] LABS: Hematocrit 30.7 % (30.3-42.9); Hemoglobin 10.8 gm/dl (10.1-14.3); Mean Corpuscular HGB Conc 35 % (30-34); Mean Corpuscular Hemoglobin 33 pg (28-32); Mean Corpuscular Volume 93 fl (79-97); Platelet Count 295 K/mm3 (140-440); Red Blood Count 3.32 M/mm3 (3.65-5.03); Red Cell Distribution Width 15.4 % (13.2-15.2); White Blood Count 13.6 K/mm3 (4.5-11.0)
--- NOTE | 2017-05-08 07:51 | Progress Note ---
Assessment and Plan Assessment and plan: Patient is a 42-year-old woman history of hypertension, etoh and tobacco dependence admitted with sepsis secondary to Pylonephritis after she presented to the ER with complaints of lower back pain hurting her but started on , also complaining of suprapubic tenderness, fever and chills and subsequently developed right flank pain, denies dysuria, frequency Severe Sepsis * Still with intermittent fever. Tmax 102 05/07/17 @15:12. * Await infectious disease input. * Leukocytosis improvement , Clinically improving. Tolerating by mouth. * Continue supportive care, IV abx. Urine culture now showing GNR. If fever persist will obtain Repeat Imaging to ensure no abscess developing although I doubt this will be the case. Septic shock * POA * Resolved Pyelonephritis * Continue Rocephin, still with low grade fever, await culture results. Peritoneal Irritation * Secondary to Pyelonephritis * Supportive care Acute Kidney injury Secondary to Vasomotor Nephropathy * Continue fluids. * Resolved Elevated BP * No through Hypertension hx, we'll stop the hydralazine when necessary. Continue to monitor for withdrawal symptoms. ETOH dependence with hx of Tremors when sober * Continue CIWA protocol Tobacco Abuse * Extensive counselling provided to quit patient wants to quite ETOH 1st. 15 mins spent on counselling * Mild to Moderate Protein calorie malnutrition * Nutrition consult DVT/GI prophy Plan discussed with patient and family in detail History Interval history: Patient is examined in no acute distress though running fever despite improved lab. Denies any nausea vomiting or diarrhea. Hospitalist Physical - Physical exam Narrative exam: VITAL SIGNS: Reviewed. GENERAL: The patient appeared well nourished and normally developed. Vital signs as documented. HEAD: No signs of head trauma. EYES: Pupils are equal. Extraocular motions intact. EARS: Hearing grossly intact. MOUTH: Oropharynx is normal. NECK: No adenopathy, no JVD. CHEST: Chest with clear breath sounds bilaterally. No wheezes, rales, or rhonchi. CARDIAC: Regular rate and rhythm. S1 and S2, without murmurs, gallops, or rubs. VASCULAR: No Edema. Peripheral pulses normal and equal in all extremities. ABDOMEN: Soft, left flank tenderness.. No sign of distention. No rebound or guarding, and no masses palpated. Bowel Sounds normal. MUSCULOSKELETAL: Good range of motion of all major joints. Extremities without clubbing, cyanosis or edema. NEUROLOGIC EXAM: Alert and oriented x 3. No focal sensory or strength deficits. Speech normal. Follows commands. PSYCHIATRIC: Mood normal. SKIN: No rash or lesions. - Constitutional Vitals: Temp Pulse Resp BP Pulse Ox 99.4 F 93 H 24 162/106 95 05/07/17 21:04 05/07/17 21:04 05/07/17 21:04 05/07/17 21:04 05/07/17 21:04 Results - Labs CBC & Chem 7: 05/08/17 05:09 05/07/17 05:03 Labs: Laboratory Last Values WBC 13.6 K/mm3 (4.5-11.0) H 05/08/17 05:09 RBC 3.32 M/mm3 (3.65-5.03) L 05/08/17 05:09 Hgb 10.8 gm/dl (10.1-14.3) 05/08/17 05:09 Hct 30.7 % (30.3-42.9) 05/08/17 05:09 MCV 93 fl (79-97) 05/08/17 05:09 MCH 33 pg (28-32) H 05/08/17 05:09 MCHC 35 % (30-34) H 05/08/17 05:09 RDW 15.4 % (13.2-15.2) H 05/08/17 05:09 Plt Count 295 K/mm3 (140-440) 05/08/17 05:09 Lymph % (Auto) 6.7 % (13.4-35.0) L 05/07/17 05:03 [place] % (Auto) 11.7 % (0.0-7.3) H 05/07/17 05:03 Eos % (Auto) 0.2 % (0.0-4.3) 05/07/17 05:03 Baso % (Auto) 0.2 % (0.0-1.8) 05/07/17 05:03 Lymph # 1.2 K/mm3 (1.2-5.4) 05/07/17 05:03 [place] # 2.0 K/mm3 (0.0-0.8) H 05/07/17 05:03 Eos # 0.0 K/mm3 (0.0-0.4) 05/07/17 05:03 Baso # 0.0 K/mm3 (0.0-0.1) 05/07/17 05:03 Add Manual Diff Complete 05/05/17 21:30 Total Counted 100 05/05/17 21:30 Seg Neutrophils % 81.2 % (40.0-70.0) H 05/07/17 05:03 Seg Neuts % (Manual) 50.0 % (40.0-70.0) 05/05/17 21:30 Band Neutrophils % 38.0 % 05/05/17 21:30 Lymphocytes % (Manual) 3.0 % (13.4-35.0) L 05/05/17 21:30 Reactive Lymphs % (Man) 0 % 05/05/17 21:30 Monocytes % (Manual) 8.0 % (0.0-7.3) H 05/05/17 21:30 Eosinophils % (Manual) 0 % (0.0-4.3) 05/05/17 21:30 Basophils % (Manual) 0 % (0.0-1.8) 05/05/17 21:30 Metamyelocytes % 1.0 % 05/05/17 21:30 Myelocytes % 0 % 05/05/17 21:30 Promyelocytes % 0 % 05/05/17 21:30 Blast Cells % 0 % 05/05/17 21:30 Nucleated RBC % Not Reportable 05/05/17 21:30 Seg Neutrophils # 14.0 K/mm3 (1.8-7.7) H 05/07/17 05:03 Seg Neutrophils # Man 11.2 K/mm3 (1.8-7.7) H 05/05/17 21:30 Band Neutrophils # 8.5 K/mm3 05/05/17 21:30 Lymphocytes # (Manual) 0.7 K/mm3 (1.2-5.4) L 05/05/17 21:30 Abs React Lymphs (Man) 0.0 K/mm3 05/05/17 21:30 Monocytes # (Manual) 1.8 K/mm3 (0.0-0.8) H 05/05/17 21:30 Eosinophils # (Manual) 0.0 K/mm3 (0.0-0.4) 05/05/17 21:30 Basophils # (Manual) 0.0 K/mm3 (0.0-0.1) 05/05/17 21:30 Metamyelocytes # 0.2 K/mm3 05/05/17 21:30 Myelocytes # 0.0 K/mm3 05/05/17 21:30 Promyelocytes # 0.0 K/mm3 05/05/17 21:30 Blast Cells # 0.0 K/mm3 05/05/17 21:30 WBC Morphology Not Reportable 05/05/17 21:30 Hypersegmented Neuts Not Reportable 05/05/17 21:30 Hyposegmented Neuts Not Reportable 05/05/17 21:30 Hypogranular Neuts Not Reportable 05/05/17 21:30 Smudge Cells Not Reportable 05/05/17 21:30 Toxic Granulation Not Reportable 05/05/17 21:30 Toxic Vacuolation Not Reportable 05/05/17 21:30 Dohle Bodies Not Reportable 05/05/17 21:30 Pelger-Huet Anomaly Not Reportable 05/05/17 21:30 Estella Rods Not Reportable 05/05/17 21:30 Platelet Estimate Consistent w auto 05/05/17 21:30 Clumped Platelets Not Reportable 05/05/17 21:30 Plt Clumps, EDTA Not Reportable 05/05/17 21:30 Large Platelets Not Reportable 05/05/17 21:30 Giant Platelets Not Reportable 05/05/17 21:30 Platelet Satelliting Not Reportable 05/05/17 21:30 Plt Morphology Comment Not Reportable 05/05/17 21:30 RBC Morphology Not Reportable 05/05/17 21:30 Dimorphic RBCs Not Reportable 05/05/17 21:30 Polychromasia Not Reportable 05/05/17 21:30 Hypochromasia Not Reportable 05/05/17 21:30 Poikilocytosis Not Reportable 05/05/17 21:30 Anisocytosis 1+ 05/05/17 21:30 Microcytosis Not Reportable 05/05/17 21:30 Macrocytosis Not Reportable 05/05/17 21:30 Spherocytes Not Reportable 05/05/17 21:30 Pappenheimer Bodies Not Reportable 05/05/17 21:30 Sickle Cells Not Reportable 05/05/17 21:30 Target Cells Not Reportable 05/05/17 21:30 Tear Drop Cells Not Reportable 05/05/17 21:30 Ovalocytes Few 05/05/17 21:30 Helmet Cells Not Reportable 05/05/17 21:30 Mull[place] Bodies Not Reportable 05/05/17 21:30 [place] Rings Not Reportable 05/05/17 21:30 [place] Cells Not Reportable 05/05/17 21:30 Bite Cells Not Reportable 05/05/17 21:30 Crenated Cell Not Reportable 05/05/17 21:30 Elliptocytes Not Reportable 05/05/17 21:30 Acanthocytes (Spur) Not Reportable 05/05/17 21:30 Rouleaux Not Reportable 05/05/17 21:30 Hemoglobin C Crystals Not Reportable 05/05/17 21:30 Schistocytes Not Reportable 05/05/17 21:30 Malaria parasites Not Reportable 05/05/17 21:30 Javier Bodies Not Reportable 05/05/17 21:30 Hem Pathologist Commnt No 05/05/17 21:30 VBG pH 7.354 (7.320-7.420) 05/05/17 21:30 Sodium 139 mmol/L (137-145) 05/07/17 05:03 Potassium 4.0 mmol/L (3.6-5.0) 05/07/17 05:03 Chloride 104.3 mmol/L (98-107) 05/07/17 05:03 Carbon Dioxide 21 mmol/L (22-30) L 05/07/17 05:03 Anion Gap 18 mmol/L 05/07/17 05:03 BUN 13 mg/dL (7-17) 05/07/17 05:03 Creatinine 0.9 mg/dL (0.7-1.2) 05/07/17 05:03 Estimated GFR > 60 ml/min 05/07/17 05:03 BUN/Creatinine Ratio 14 % 05/07/17 05:03 Glucose 86 mg/dL (65-100) 05/07/17 05:03 Lactic Acid 1.80 mmol/L (0.7-2.0) 05/07/17 05:03 Calcium 8.9 mg/dL (8.4-10.2) 05/07/17 05:03 Magnesium 2.00 mg/dL (1.7-2.3) 05/05/17 21:30 Total Bilirubin 0.50 mg/dL (0.1-1.2) 05/05/17 21:30 AST 71 units/L (5-40) H 05/05/17 21:30 ALT 77 units/L (7-56) H 05/05/17 21:30 Alkaline Phosphatase 85 units/L (35-129) 05/05/17 21:30 Total Creatine Kinase 22 units/L (30-135) L 05/07/17 05:03 CK-MB (CK-2) < 1.0 ng/mL (0.0-4.0) 05/07/17 05:03 CK-MB (CK-2) Rel Index 4.5 (0-4) H 05/07/17 05:03 Total Protein 6.8 g/dL (6.3-8.2) 05/05/17 21:30 Albumin 2.8 g/dL (3.9-5) L 05/05/17 21:30 Albumin/Globulin Ratio 0.7 % 05/05/17 21:30 HCG, Qual Negative (Negative) 05/05/17 21:30 Urine Color Yellow (Yellow) 05/05/17 01:08 Urine Turbidity Clear (Clear) 05/05/17 01:08 Urine pH 5.0 (5.0-7.0) 05/05/17 01:08 Ur Specific [place] 1.015 (1.003-1.030) 05/05/17 01:08 Urine Protein 100 mg/dl mg/dL (Negative) 05/05/17 01:08 Urine Glucose (UA) Neg mg/dL (Negative) 05/05/17 01:08 Urine Ketones Tr mg/dL (Negative) 05/05/17 01:08 Urine Blood Mod (Negative) 05/05/17 01:08 Urine Nitrite Pos (Negative) 05/05/17 01:08 Urine Bilirubin Neg (Negative) 05/05/17 01:08 Urine Urobilinogen < 2.0 mg/dL (<2.0) 05/05/17 01:08 Ur Leukocyte Esterase Lg (Negative) 05/05/17 01:08 Urine WBC (Auto) 85.0 /HPF (0.0-6.0) H 05/05/17 01:08 Urine RBC (Auto) 4.0 /HPF (0.0-6.0) 05/05/17 01:08 U Epithel Cells (Auto) 3.0 /HPF (0-13.0) 05/05/17 01:08 Urine WBC Clumps Few /HPF 05/05/17 01:08 Ur Transition Epith Cell < 1 /HPF 05/05/17 01:08 Urine Mucus Few /HPF 05/05/17 01:08
[2017-05-08] MEDS: ROCEPHIN/NS 1 GM/50 ML 1 GM/50 ML BAG IV SCH (10:31)
[2017-05-08] MEDS: LOVENOX SUB-Q SCH (10:36)
[2017-05-08] MEDS ORDERED: Fluarix Quad 2017-2018(36 MOS+) IM ONE (12:00)
[2017-05-08] MEDS: APRESOLINE IV PRN ×2 (12:25→17:28)
--- NOTE | 2017-05-08 14:26 | Consultation ---
History of Present Illness - Reason for Consult Consult date: 05/08/17 pyelonephritis Requesting physician: ADELA TELLEZ - History of Present Illness 42 year old female with history of hypertension admitted on 05/05/2017 to right- sided abdominal pain and subjective fever. Patient reports that pain started 5 days before admission, initially on the right side, mild, however it became progressively worse. Patient also reports subjective fever and some chills. Denies any nausea, vomiting and diarrhea. Denies any urinary symptoms. Denies any previous stones. In the emergency room, initial temperature was 100.6 then went up to 102.9. Heart rate 98, blood pressure 87/54. Initial white count was 22. Creatinine 2. Lactic acid was 2.7 and then went to [place]. Urianalysis was positive for leukocyte esterase and 85 white blood cells. Microbiology: Blood cultures: 05/05 ngtd Urine cultures: 05/05 Current Antimicrobials: Ceftriaxone 05/06 Past History Past Medical History: No medical history, hypertension Past Surgical History: No surgical history Social history: , full code. denies: alcohol abuse, prescription drug abuse, IV drug use Medications and Allergies Allergies Allergy/AdvReac Type Severity Reaction Status Date / Time No Known Allergies Allergy Verified 04/25/17 19:41 Home Medications Medication Instructions Recorded Confirmed Last Taken Type HYDROcodone/APAP 5-325 [[place] 1 - 2 each PO Q6HR PRN #10 tablet 11/05/16 Unknown Rx 5/325] Ibuprofen [Motrin 800 MG tab] 800 mg PO Q8HR PRN #20 tablet 11/05/16 05/06/17 Unknown Rx Active Meds: Active Medications Acetaminophen (Tylenol) 650 mg PO Q4H PRN PRN Reason: Pain MILD(1-3)/Fever >100.5/[place] Last Admin: 05/08/17 00:17 Dose: 650 mg Bisacodyl (Dulcolax) 10 mg NM QDAY PRN PRN Reason: Constipation unrelieved by MOM Enoxaparin Sodium (Lovenox) 40 mg SUB-Q QDAY@1000 [place] Last Admin: 05/08/17 10:36 Dose: Not Given Hydralazine HCl (Apresoline) 10 mg IV Q4HR PRN PRN Reason: Hypertension Last Admin: 05/08/17 12:25 Dose: 10 mg Sodium Chloride (Nacl 0.9% 1000 Ml) 1,000 mls @ 150 mls/hr IV DIRECT [place] Last Admin: 05/08/17 10:29 Dose: 150 mls/hr Ceftriaxone Sodium (Rocephin/Ns 1 Gm/50 Ml) 1 gm in 50 mls @ 100 mls/hr IV Q24HR [place] PRN Reason: Protocol Last Admin: 05/08/17 10:31 Dose: 100 mls/hr Lorazepam (Ativan) 2 mg IV Q1HR PRN PRN Reason: CIWA-Ar 8-15 Lorazepam (Ativan) 4 mg IV Q1HR PRN PRN Reason: CIWA-Ar 16-25 Magnesium Hydroxide (Milk Of Magnesia) 30 ml PO Q4H PRN PRN Reason: Constipation Ondansetron HCl (Zofran) 4 mg IV Q8H PRN PRN Reason: N/V unrelieved by Reglan Oxycodone/Acetaminophen (Percocet 5/325) 1 tab PO Q6H PRN PRN Reason: Pain, Moderate (4-6) Last Admin: 05/06/17 21:49 Dose: 1 tab Review of Systems All systems: negative (right flank pain) Physical Examination - Physical Exam Narrative exam: General appearance: Alert in NAD, conversant Eyes: anicteric sclerae, moist conjunctivae; no lid-lag; PERRLA HENT: Atraumatic; oropharynx clear with moist mucous membranes and no mucosal ulcerations/no oral thrush; normal hard and soft palate. Normal external ears. Neck: Trachea midline; supple, no thyromegaly or lymphadenopathy Lungs: CTA, with normal respiratory effort and no intercostal retractions CV: RRR, no murmurs Abdomen: Soft, +right CVT Extremities: No peripheral edema or extremity lymphadenopathy Skin: Normal temperature, turgor and texture; no rash, ulcers or subcutaneous nodules Psych: Appropriate affect, alert and oriented to person, place and time. Neuro: alert and oriented x 3. Moving all extermities Lines: No CVL / PICC - Constitutional Vitals: Vital Signs Temp Pulse Resp BP Pulse Ox 99.4 F 92 H 20 171/114 99 05/08/17 12:02 05/08/17 12:25 05/08/17 12:02 05/08/17 12:25 05/08/17 12:02 Temperature -Last 24 Hours Temperature 99.4 F Temperature 100.2 F Temperature 99.4 F Temperature 102.1 F Results - Labs CBC & Chem 7: 05/08/17 05:09 05/07/17 05:03 Labs: Abnormal lab results 05/08/17 Range/Units 05:09 WBC 13.6 H (4.5-11.0) K/mm3 RBC 3.32 L (3.65-5.03) M/mm3 MCH 33 H (28-32) pg MCHC 35 H (30-34) % RDW 15.4 H (13.2-15.2) % Assessment and Plan Assessment: 1) Sepsis: Present on admission, manifested by fever, tachycardia, hypotension, leukocytosis, increased lactate. Etiology most likely UTI. 2) Right pyelonephritis: -Urine cx + GNR -CT + right paranephric stranding Plan: -follow-up blood cultures, urine culture -obtain C-reactive protein (CRP) -continue ceftriaxone -upon discharge will do levaquin 750 mg PO q day for 10 days if isolate sensitive to levaquin -monitor fever/leukocytosis Thank you Dr Tellez for your consultation, will follow up with you. Nanette Franco MD Infectious Diseases Specialist [facility] M [phone] O [phone]
[2017-05-09] MEDS: NACL 0.9% 1000 ML 1,000 ML IV SCH ×2 (00:33→06:19)
[2017-05-09] MEDS: PERCOCET 5/325 PO PRN (00:50)
[2017-05-09 07:40] LABS: Hemoglobin 10.5 gm/dl (10.1-14.3); Mean Corpuscular HGB Conc 34 % (30-34); Mean Corpuscular Hemoglobin 31 pg (28-32); Mean Corpuscular Volume 92 fl (79-97); Platelet Count 372 K/mm3 (140-440); Red Blood Count 3.36 M/mm3 (3.65-5.03); Red Cell Distribution Width 15.5 % (13.2-15.2); White Blood Count 10.7 K/mm3 (4.5-11.0)
--- NOTE | 2017-05-09 09:08 | Discharge Summary ---
Providers - Providers Date of Admission: 05/06/17 04:19 Attending physician: ADELA MCDONOUGH MD 05/07/17 15:57 Consult to Physician [CONS] Routine Consulting Provider: MAYURI CERRATO Reason For Exam: sepsis Place consult to:: DR. BROUSSARD Notified:: DR. BROUSSARD Phone number called:: IN HOUSE Was contact made?: Yes If yes, spoke with:: DR. BROUSSARD Time called:: 09:53 Comment:: PAT AWARE 05/08/17 07:48 Consult to Dietitian/Nutrition [CONS] Routine Physician Instructions: Reason For Exam: Reason for Consult: Poor oral intake Primary care physician: [facility] Hospitalization Reason for admission: sepsis Condition: Stable Hospital course: Patient is a 42-year-old woman history of hypertension, etoh and tobacco dependence admitted with sepsis secondary to Pylonephritis after she presented to the ER with complaints of lower back pain hurting her but started on , also complaining of suprapubic tenderness, fever and chills and subsequently developed right flank pain, denies dysuria, frequency Severe Sepsis * patient was admitted with fever, tachycardia, hypotension, leukocytosis, increased lactate * was treated with Rocephin and cultures grew ecoli and is discharged on Levaquin to complete 10 * Continue supportive care, IV abx. Urine culture now showing GNR. * CT + right paranephric stranding Septic shock * Resolved Pyelonephritis * Treated with abx as noted above Peritoneal Irritation * Secondary to Pyelonephritis * Supportive care Was provided Acute Kidney injury Secondary to Vasomotor Nephropathy * Resolved Elevated BP * No through Hypertension hx, we'll stop the hydralazine when necessary. Continue to monitor for withdrawal symptoms. ETOH dependence with hx of Tremors when sober * Counselling provided Continue CIWA protocol Tobacco Abuse * Extensive counselling provided to quit patient wants to quite ETOH 1st. 15 mins spent on counselling Mild to Moderate Protein calorie malnutrition * Nutrition consult Disposition: TO HOME OR SELFCARE Time spent for discharge: 35 mins Core Measure Documentation - Palliative Care Palliative Care/ Comfort Measures: Not Applicable - Core Measures Any of the following diagnoses?: none - VTE Discharge Requirements Deep Vein Thrombosis/Pulmonary Embolism Present on Admission: No Exam - Physical Exam Narrative exam: VITAL SIGNS: Reviewed. GENERAL: The patient appeared well nourished and normally developed. Vital signs as documented. HEAD: No signs of head trauma. EYES: Pupils are equal. Extraocular motions intact. EARS: Hearing grossly intact. MOUTH: Oropharynx is normal. NECK: No adenopathy, no JVD. CHEST: Chest with clear breath sounds bilaterally. No wheezes, rales, or rhonchi. CARDIAC: Regular rate and rhythm. S1 and S2, without murmurs, gallops, or rubs. VASCULAR: No Edema. Peripheral pulses normal and equal in all extremities. ABDOMEN: Soft, non tender. No sign of distention. No rebound or guarding, and no masses palpated. Bowel Sounds normal. MUSCULOSKELETAL: Good range of motion of all major joints. Extremities without clubbing, cyanosis or edema. NEUROLOGIC EXAM: Alert and oriented x 3. No focal sensory or strength deficits. Speech normal. Follows commands. PSYCHIATRIC: Mood normal. SKIN: No rash or lesions. - Constitutional Vitals: Temp Pulse Resp BP Pulse Ox 98.0 F 89 18 161/109 97 05/08/17 23:38 05/08/17 23:38 05/08/17 23:38 05/08/17 23:38 05/08/17 23:38 Plan Activity: advance as tolerated, fall precautions Diet: low fat Special Instructions: record daily weights, record daily BP diary, smoking cessation, other (etoh cessation) Follow up with: PRIMARY CARE, [Primary Care Provider] - 7 Days Prescriptions: Hydrochlorothiazide [HCTZ] 25 mg PO QDAY #30 tablet Levofloxacin [Levaquin] 750 mg PO QDAY #7 tablet traMADol [Ultram] 50 mg PO Q6HR PRN #14 tablet PRN Reason: Pain
[2017-05-09 09:25] VITALS: BP 170/104
[2017-05-09] MEDS ORDERED: APRESOLINE ONE (09:32)
[2017-05-09] MEDS: ROCEPHIN/NS 1 GM/50 ML 1 GM/50 ML BAG IV SCH (09:45)
[2017-05-09] MEDS ORDERED: APRESOLINE PO SCH (10:00)
[2017-05-09] MEDS ORDERED: HCTZ PO SCH (10:00)
[2017-05-09] MEDS: LOVENOX SUB-Q SCH (11:00)
[2017-05-09] MEDS ORDERED: APRESOLINE PO ONE (11:09)
--- NOTE | 2017-05-09 13:29 | Progress Note ---
Assessment and Plan Assessment: 1) Sepsis: resovled. Etiology most likely UTI. CRP=19 2) Right pyelonephritis: -Urine cx + E coli -CT + right paranephric stranding Plan: -continue ceftriaxone -upon discharge will do levaquin 750 mg PO q day for 10 days I am signing off Thank you Dr Tellez for your consultation, will follow up with you. Nanette Franco MD Infectious Diseases Specialist [facility] ([facility]) M [phone] O [phone] Subjective Date of service: 05/09/17 Principal diagnosis: pyelonepritis Interval history: feels better, no fever overnight. Microbiology: Blood cultures: 05/05 ngtd Urine cultures: 05/05 E coli sensitive to levaquin Current Antimicrobials: Ceftriaxone 05/06 Objective - Exam Narrative Exam: General appearance: Alert in NAD, conversant Eyes: anicteric sclerae, moist conjunctivae; no lid-lag; PERRLA HENT: Atraumatic; oropharynx clear with moist mucous membranes and no mucosal ulcerations/no oral thrush; normal hard and soft palate. Normal external ears. Neck: Trachea midline; supple, no thyromegaly or lymphadenopathy Lungs: CTA, with normal respiratory effort and no intercostal retractions CV: RRR, no murmurs Abdomen: Soft, +right CVT Extremities: No peripheral edema or extremity lymphadenopathy Skin: Normal temperature, turgor and texture; no rash, ulcers or subcutaneous nodules Psych: Appropriate affect, alert and oriented to person, place and time. Neuro: alert and oriented x 3. Moving all extermities Lines: No CVL / PICC - Constitutional Vitals: Vital Signs Temp Pulse Resp BP Pulse Ox 98.9 F 82 18 170/104 93 05/09/17 08:23 05/09/17 08:23 05/09/17 08:23 05/09/17 08:23 05/09/17 08:23 Temperature -Last 24 Hours Temperature 98.9 F Temperature 98.0 F Temperature 99.9 F - Labs CBC & Chem 7: 05/09/17 06:26 05/07/17 05:03 Labs: Abnormal lab results 05/08/17 05/09/17 Range/Units 15:01 06:26 RBC 3.36 L (3.65-5.03) M/mm3 RDW 15.5 H (13.2-15.2) % C-Reactive Protein 19.90 H (0.00-1.30) mg/dL
== END 2017-05-09 11:00 | disposition home or self-care (01) | DRG 871 ==
LOC: ED 18:25 → 3A 05-06 04:19
PROVIDERS: ADMIT Internal Medicine; ATTEND Internal Medicine
DX: A41.9 Sepsis, unspecified organism (principal); R65.21 Severe sepsis with septic shock; N17.0 Acute kidney failure with tubular necrosis; N12 Tubulo-interstitial nephritis, not specified as acute or chronic; E44.0 Moderate protein-calorie malnutrition; I10 Essential (primary) hypertension; F17.210 Nicotine dependence, cigarettes, uncomplicated; E87.6 Hypokalemia; Z82.49 Family history of ischemic heart disease and other diseases of the circulatory system; Z71.9 Counseling, unspecified; F10.20 Alcohol dependence, uncomplicated; Z68.28 Body mass index [BMI] 28.0-28.9, adult
CPT/HCPCS: 36415; 74176; 80048; 80053; 81001; 82140; 82550; 82553; 82805; 83735; 84703; 85007; 85025; 85027; 86140; 87040; 87076; 87086; 87186; 90686; 93005; 93010; 96361; 96365; 96375; 99285; 99406; J0360; J0696; J1650; J1885; J2270; J2543; J7030; J7040

== ENCOUNTER 2017-11-01 20:56 | Emergency (ER) | payer OTHER ==
[2017-11-01] MEDS ORDERED: ASPIRIN PO ONE (21:42)
[2017-11-01 22:08] LABS: Basophils # (Auto) 0.1 K/mm3 (0.0-0.1); Eosinophils # (Auto) 0.3 K/mm3 (0.0-0.4); Eosinophils % (Auto) 3.3 % (0.0-4.3); Hematocrit 42.4 % (30.3-42.9); Hemoglobin 14.6 gm/dl (10.1-14.3); Lymphocytes % (Auto) 39.2 % (13.4-35.0); Mean Corpuscular HGB Conc 35 % (30-34); Mean Corpuscular Hemoglobin 32 pg (28-32); Mean Corpuscular Volume 93 fl (79-97); Monocytes # (Auto) 0.7 K/mm3 (0.0-0.8); Monocytes % (Auto) 8.6 % (0.0-7.3); Platelet Count 288 K/mm3 (140-440); Red Blood Count 4.56 M/mm3 (3.65-5.03); Red Cell Distribution Width 13.5 % (13.2-15.2)
[2017-11-01 22:18] LABS: BUN/Creatinine Ratio 21; Bilirubin,Urine NEG (Negative); Blood Urea Nitrogen 15 mg/dL (7-17); Blood,Urine NEG (Negative); Calcium 9.5 mg/dL (8.4-10.2); Color,Urine Yellow (Yellow); Hemolysis Index 7; Mucus,Urine FEW /HPF; Protein,Urine <15 mg/dL mg/dL (Negative); Urobilinogen,Urine < 2.0 mg/dL (<2.0)
[2017-11-01 22:23] LABS: HCG Qualitative,Urine Negative (Negative)
[2017-11-02] MEDS ORDERED: LOPRESSOR PO ONE (02:09)
[2017-11-02 02:15] VITALS: BP 139/86
[2017-11-02] MEDS ORDERED: TORADOL IM ONE ×2 (02:19→02:24)
--- NOTE | 2017-11-02 02:21 | Emergency Department Report ---
ED Chest Pain HPI - General Chief Complaint: Chest Pain Stated Complaint: CHEST PAIN,HIGH BLOOD PRESSURE Time Seen by Provider: 11/02/17 01:55 Source: patient Mode of arrival: Ambulatory Limitations: No Limitations - History of Present Illness Initial Comments: Patient was also complaining of a headache all around the head of moderate intensity and nonradiating with no aggravating or relieving factors. She denies any neck pain or fever. Patient was also complaining of palpitations. MD Complaint: chest pain Onset/Timin (day) -: Gradual Onset: during rest Pain Location: left chest Pain Radiation: none Severity: mild Severity scale (0 -10): 0 Quality: aching Consistency: intermittent Improves With: nothing Worsens With: nothing Treatments Prior to Arrival: none - Related Data Previous Rx's Medication Instructions Recorded Last Taken Type Hydrochlorothiazide [HCTZ] 25 mg PO QDAY #30 tablet 05/09/17 Unknown Rx Levofloxacin [Levaquin] 750 mg PO QDAY #7 tablet 05/09/17 Unknown Rx traMADol [Ultram] 50 mg PO Q6HR PRN #14 tablet 05/09/17 Unknown Rx Metoprolol [Lopressor TAB] 12.5 mg PO BID #30 tablet 11/02/17 Unknown Rx Allergies Allergy/AdvReac Type Severity Reaction Status Date / Time No Known Allergies Allergy Verified 04/25/17 19:41 Heart Score - HEART Score History: Slightly suspicious EKG: Non-specific Age: < 45 Risk factors: 1-2 risk factors Troponin: < normal limit HEART Score: 2 ED Review of Systems ROS: Stated complaint: CHEST PAIN,HIGH BLOOD PRESSURE Other details as noted in HPI Comment: All other systems reviewed and negative ED Past Medical Hx - Past Medical History Hx Hypertension: Yes Additional medical history: palpitations - Surgical History Additional Surgical History: c section,tubiligation - Social History Smoking Status: Current Every Day Smoker Substance Use Type: Alcohol - Medications Home Medications: Home Medications Medication Instructions Recorded Confirmed Last Taken Type Hydrochlorothiazide [HCTZ] 25 mg PO QDAY #30 tablet 05/09/17 Unknown Rx Levofloxacin [Levaquin] 750 mg PO QDAY #7 tablet 05/09/17 Unknown Rx traMADol [Ultram] 50 mg PO Q6HR PRN #14 tablet 05/09/17 Unknown Rx Metoprolol [Lopressor TAB] 12.5 mg PO BID #30 tablet 11/02/17 Unknown Rx ED Physical Exam - General Limitations: No Limitations General appearance: alert, in no apparent distress - Head Head exam: Present: atraumatic, normocephalic - Eye Eye exam: Present: normal appearance - ENT ENT exam: Present: mucous membranes moist - Neck Neck exam: Present: normal inspection - Respiratory Respiratory exam: Present: normal lung sounds bilaterally. Absent: respiratory distress - Cardiovascular Cardiovascular Exam: Present: regular rate, normal rhythm. Absent: systolic murmur, diastolic murmur, rubs, gallop - GI/Abdominal GI/Abdominal exam: Present: soft, normal bowel sounds. Absent: tenderness - Rectal Rectal exam: Present: deferred - Back Exam Back exam: Present: normal inspection - Neurological Exam Neurological exam: Present: alert, oriented X3 - Psychiatric Psychiatric exam: Present: normal affect, normal mood - Skin Skin exam: Present: warm, dry, intact, normal color. Absent: rash ED Course Vital Signs 11/01/17 11/01/17 11/02/17 20:56 21:26 01:45 Temperature 99.1 F 99.1 F 98.8 F Pulse Rate 96 H 94 H 83 Respiratory 18 18 17 Rate Blood Pressure 163/102 163/102 Blood Pressure 127/97 [Left] O2 Sat by Pulse 98 97 99 Oximetry 11/02/17 02:14 Temperature Pulse Rate 87 Respiratory Rate Blood Pressure 139/86 Blood Pressure [Left] O2 Sat by Pulse Oximetry ED Medical Decision Making - Lab Data Result diagrams: 11/01/17 21:46 11/01/17 21:46 - EKG Data -: EKG Interpreted by Me EKG shows normal: sinus rhythm (rate of 88), axis (normal), intervals (normal), QRS complexes (normal. pvc's. ventricular bigeminy), ST-T waves (non specific) Critical care attestation.: If time is entered above; I have spent that time in minutes in the direct care of this critically ill patient, excluding procedure time. ED Disposition Clinical Impression: Atypical chest pain, Palpitation, Ventricular bigeminy seen on sole skiver Disposition: TO HOME OR SELFCARE Is pt being admited?: No Does the pt Need Aspirin: No Condition: Stable Instructions: Chest Pain (ED), Palpitations (ED) Prescriptions: Metoprolol [Lopressor TAB] 12.5 mg PO BID #30 tablet Referrals: GISSELLE PINEDA MD [Primary Care Provider] - 2-3 Days Time of Disposition: 02:22 Print Language: UPPER SORBIAN
== END 2017-11-02 02:38 | disposition home or self-care (01) ==
LOC: ED 20:56
DX: R07.89 Other chest pain (principal); R00.2 Palpitations; I10 Essential (primary) hypertension; F17.200 Nicotine dependence, unspecified, uncomplicated
CPT/HCPCS: 36415; 80048; 81001; 81025; 84484; 85025; 93005; 93010; 96372; 99284; J1885

== ENCOUNTER 2018-02-05 15:15 | Emergency (ER) | payer OTHER ==
[2018-02-05 16:08] LABS: BUN/Creatinine Ratio 17; Blood Urea Nitrogen 10 mg/dL (7-17); Calcium 9.2 mg/dL (8.4-10.2); Hemolysis Index 14
[2018-02-05 16:10] LABS: Basophils # (Auto) 0.1 K/mm3 (0.0-0.1); Eosinophils # (Auto) 0.2 K/mm3 (0.0-0.4); Eosinophils % (Auto) 3.4 % (0.0-4.3); Hematocrit 41.2 % (30.3-42.9); Hemoglobin 14.1 gm/dl (10.1-14.3); Lymphocytes # (Auto) 1.9 K/mm3 (1.2-5.4); Lymphocytes % (Auto) 32.4 % (13.4-35.0); Mean Corpuscular HGB Conc 34 % (30-34); Mean Corpuscular Hemoglobin 31 pg (28-32); Mean Corpuscular Volume 91 fl (79-97); Monocytes # (Auto) 0.6 K/mm3 (0.0-0.8); Monocytes % (Auto) 10.3 % (0.0-7.3); Platelet Count 247 K/mm3 (140-440); Red Blood Count 4.53 M/mm3 (3.65-5.03); Red Cell Distribution Width 13.3 % (13.2-15.2)
[2018-02-05] MEDS ORDERED: NORCO 5/325 PO ONE (22:59)
--- NOTE | 2018-02-05 23:13 | Emergency Department Report ---
HPI - General Chief Complaint: Chest Pain Time Seen by Provider: 02/05/18 22:53 - HPI HPI: Room 21 The patient is a 42-year-old female presenting with a chief complaint of chest pain. Patient states this morning she developed substernal chest pain described as pushing an intermittent in nature. Patient states she got short of breath and diaphoretic with the pain but denies nausea/vomiting. The patient was admitted to the hospital by myself 2 weeks ago for the same and had a negative exercise treadmill test. Patient states she's never had a cardiac catheterization. The patient states her pain is a 5/10 currently Location: Chest Duration: [See above] Quality: Pressure Severity: 5/10 Modifying factors: [see above] Context: [see above] Mode of transportation: [not driving] ED Past Medical Hx - Past Medical History Previous Medical History?: Yes Hx Hypertension: Yes Hx Arthritis: Yes Additional medical history: palpitations, ovarian cysts - Surgical History Past Surgical History?: Yes Additional Surgical History: c section,tubiligation - Family History Family history: no significant - Social History Smoking Status: Current Every Day Smoker (1/2 pack per day) Substance Use Type: None - Medications Home Medications: Home Medications Medication Instructions Recorded Confirmed Last Taken Type Hydrochlorothiazide [HCTZ] 25 mg PO QDAY #30 tablet 01/20/18 Unknown Rx Metoprolol [Lopressor TAB] 12.5 mg PO BID #30 tablet 01/20/18 Unknown Rx HYDROcodone/APAP 5-325 [[place] 1 each PO Q6HR PRN #7 tablet 02/06/18 Unknown Rx 5/325] ED Review of Systems ROS: Stated complaint: CHEST PAIN Other details as noted in HPI Constitutional: diaphoresis Eyes: denies: eye pain ENT: denies: throat pain Respiratory: shortness of breath Cardiovascular: chest pain Endocrine: no symptoms reported Gastrointestinal: denies: abdominal pain, nausea, vomiting Genitourinary: denies: dysuria Musculoskeletal: denies: back pain Neurological: denies: headache Physical Exam - Physical Exam Vital Signs: Vital Signs 02/05/18 15:31 Temperature 98.4 F Pulse Rate 83 Respiratory 18 Rate Blood Pressure 177/109 O2 Sat by Pulse 98 Oximetry Physical Exam: GENERAL: The patient is well-developed well-nourished female lying on stretcher not appearing to be in acute distress. [] HEENT: Normocephalic. Atraumatic. Extraocular motions are intact. Patient has moist mucous membranes. NECK: Supple. Trachea midline CHEST/LUNGS: Clear to auscultation. There is no respiratory distress noted. HEART/CARDIOVASCULAR: Regular. There is no tachycardia. There is no gallop rub or murmur. ABDOMEN: Abdomen is soft, nontender. Patient has normal bowel sounds. There is no abdominal distention. SKIN: There is no rash. There is no diaphoresis. NEURO: The patient is awake, alert, and oriented. The patient is cooperative. The patient has normal speech MUSCULOSKELETAL: There is no evidence of acute injury. ED Course Vital Signs 02/05/18 15:31 Temperature 98.4 F Pulse Rate 83 Respiratory 18 Rate Blood Pressure 177/109 O2 Sat by Pulse 98 Oximetry - Consultations Consultation #1: 02/05/18 23:55 Cardiology paged 02/05/18 23:[address] Cabrales- states if CT chest negative and does not reveal coronary calcifications the patient may be discharged home to follow up in the office 08:30 tomorrow ED Medical Decision Making - Lab Data Result diagrams: 02/05/18 15:46 02/05/18 15:46 Laboratory Tests 02/05/18 02/05/18 02/05/18 15:46 15:46 18:22 WBC 5.9 RBC 4.53 Hgb 14.1 Hct 41.2 MCV 91 MCH 31 MCHC 34 RDW 13.3 Plt Count 247 Lymph % (Auto) 32.4 [place] % (Auto) 10.3 H Eos % (Auto) 3.4 Baso % (Auto) 1.0 Lymph # 1.9 [place] # 0.6 Eos # 0.2 Baso # 0.1 Seg Neutrophils % 52.9 Seg Neutrophils # 3.1 D-Dimer Sodium 138 Potassium 3.0 L Chloride 101.2 Carbon Dioxide 24 Anion Gap 16 BUN 10 Creatinine 0.6 L Estimated GFR > 60 BUN/Creatinine Ratio 17 Glucose 84 Calcium 9.2 Troponin T < 0.010 < 0.010 02/05/18 02/05/18 21:34 21:34 WBC RBC Hgb Hct MCV MCH MCHC RDW Plt Count Lymph % (Auto) [place] % (Auto) Eos % (Auto) Baso % (Auto) Lymph # [place] # Eos # Baso # Seg Neutrophils % Seg Neutrophils # D-Dimer 272.05 H Sodium Potassium Chloride Carbon Dioxide Anion Gap BUN Creatinine Estimated GFR BUN/Creatinine Ratio Glucose Calcium Troponin T < 0.010 - EKG Data -: EKG Interpreted by Me EKG shows normal: sinus rhythm Rate: normal - EKG Data When compared to previous EKG there are: no significant change, previous EKG unavailable Interpretation: unchanged when compared t (01/20/2018) - Radiology Data Radiology results: report reviewed (CT chest), image reviewed (CT chest) [facility] [address] [place] [address] Cat Scan Report Signed Patient: IGNACIA CUMMINGS MR#: [id number] : 1975 Acct:[id number] Age/Sex: 42 / F ADM Date: 02/05/18 Loc: ED Attending Dr: Ordering Physician: RONY MESSINA MD Date of Service: 02/06/18 Procedure(s): CT angio chest Accession Number(s): [id number] cc: RONY MESSINA MD FINAL REPORT PROCEDURE: CT ANGIO CHEST TECHNIQUE: Computerized tomographic angiography of the chest was performed after the IV injection of iodinated nonionic contrast including image processing. The image data was postprocessed using 2-dimensional multiplanar reformatted (MPR) and 3-dimensional (MIP and/or volume rendered) techniques. HISTORY: chest pain, shortness of breath COMPARISON: No prior studies are available for comparison. FINDINGS: Heart and pericardium: Normal. Thoracic aorta: Normal. Pulmonary vasculature: Normal. Lymph nodes: No enlarged thoracic lymph nodes. Lungs: Lungs are clear. No infiltrate, effusion or pneumothorax. Central airway is patent.. Pleural space: No effusion, thickening, or pneumothorax. Musculoskeletal structures: No significant abnormality. Upper abdominal structures: No significant abnormality. IMPRESSION: There is no evidence of pulmonary arterial emboli. The lungs are clear without infiltrate, effusion or pneumothorax. Transcribed By: [facility] Dictated By: VERÓNICA TORRES MD Electronically Authenticated By: VERÓNICA TORRES MD Signed Date/Time: 02/06/18113 DD/ 3 TD/TT: 02/06/18113 - Differential Diagnosis ACS, PE, GERD, pericarditis, costochondritis Critical care attestation.: If time is entered above; I have spent that time in minutes in the direct care of this critically ill patient, excluding procedure time. ED Disposition Clinical Impression: Chest pain, Hypokalemia Disposition: - TO HOME OR SELFCARE Is pt being admited?: No Does the pt Need Aspirin: No Condition: Stable Instructions: Chest Pain (ED) Additional Instructions: Return to the emergency department immediately should you develop worsening symptoms, fever, inability to tolerate food or liquid or any other concerns. Prescriptions: HYDROcodone/APAP 5-325 [[place] 5/325] 1 each PO Q6HR PRN #7 tablet PRN Reason: Pain Referrals: KAYLEE CABRALES MD [Staff Physician] - 02/06/18 8:30 am (Please call your pulmonary disease specialist's office to confirm you can be seen this morning at 08:30 for further evaluation) Time of Disposition: 01:34
[2018-02-05] MEDS ORDERED: K-DUR PO ONE (23:15)
--- NOTE | 2018-02-06 01:19 | Cat Scan Report ---
FINAL REPORT PROCEDURE: CT ANGIO CHEST TECHNIQUE: Computerized tomographic angiography of the chest was performed after the IV injection of iodinated nonionic contrast including image processing. The image data was postprocessed using 2-dimensional multiplanar reformatted (MPR) and 3-dimensional (MIP and/or volume rendered) techniques. HISTORY: chest pain, shortness of breath COMPARISON: No prior studies are available for comparison. FINDINGS: Heart and pericardium: Normal. Thoracic aorta: Normal. Pulmonary vasculature: Normal. Lymph nodes: No enlarged thoracic lymph nodes. Lungs: Lungs are clear. No infiltrate, effusion or pneumothorax. Central airway is patent.. Pleural space: No effusion, thickening, or pneumothorax. Musculoskeletal structures: No significant abnormality. Upper abdominal structures: No significant abnormality. IMPRESSION: There is no evidence of pulmonary arterial emboli. The lungs are clear without infiltrate, effusion or pneumothorax.
[2018-02-06 01:47] VITALS: BP 136/72
== END 2018-02-06 01:46 | disposition home or self-care (01) ==
LOC: ED 15:15
DX: R07.89 Other chest pain (principal); E87.6 Hypokalemia; I10 Essential (primary) hypertension; M19.90 Unspecified osteoarthritis, unspecified site; F17.210 Nicotine dependence, cigarettes, uncomplicated; Z98.51 Tubal ligation status
CPT/HCPCS: 36415; 71275; 80048; 84484; 85025; 85379; 93005; 93010; 99284; Q9967

== ENCOUNTER 2018-02-07 16:26 | Emergency (ER) | payer OTHER ==
[2018-02-07] MEDS ORDERED: ASPIRIN PO ONE (16:35)
[2018-02-07 18:43] LABS: Basophils # (Auto) 0.1 K/mm3 (0.0-0.1); Basophils % (Auto) 1.1 % (0.0-1.8); Eosinophils # (Auto) 0.3 K/mm3 (0.0-0.4); Eosinophils % (Auto) 4.3 % (0.0-4.3); Hematocrit 39.3 % (30.3-42.9); Hemoglobin 13.3 gm/dl (10.1-14.3); Lymphocytes # (Auto) 2.4 K/mm3 (1.2-5.4); Lymphocytes % (Auto) 37.3 % (13.4-35.0); Mean Corpuscular HGB Conc 34 % (30-34); Mean Corpuscular Hemoglobin 31 pg (28-32); Mean Corpuscular Volume 93 fl (79-97); Monocytes # (Auto) 0.7 K/mm3 (0.0-0.8); Monocytes % (Auto) 10.9 % (0.0-7.3); Platelet Count 253 K/mm3 (140-440); Red Blood Count 4.24 M/mm3 (3.65-5.03); Red Cell Distribution Width 13.4 % (13.2-15.2)
[2018-02-07] MEDS ORDERED: NORCO 5/325 PO ONE (18:43)
[2018-02-07] MEDS ORDERED: NITROSTAT SL ONE (18:43)
[2018-02-07] MEDS ORDERED: LIDOCAINE VISCOUS 2% PO ONE (18:50)
[2018-02-07] MEDS ORDERED: ALUM-MAG HYDROX-SIMETH 200-200-20MG/5ML PO ONE (18:50)
[2018-02-07 19:00] LABS: BUN/Creatinine Ratio 14; Blood Urea Nitrogen 10 mg/dL (7-17); Calcium 9.9 mg/dL (8.4-10.2); Hemolysis Index 26
--- NOTE | 2018-02-07 19:09 | Emergency Department Report ---
HPI - General Chief Complaint: Syncope Time Seen by Provider: 02/07/18 17:41 - HPI HPI: The patient is a 42-year-old female who presents for evaluation of chest pain and syncope. The patient states that she has experienced constant chest pain for the past 2 weeks, midsternal, sharp in quality, currently 7/10 in severity. She shares that she passed out yesterday while at work. The patient denies fever, neck pain, parasthesias, dyspnea, cough, hemoptysis, palpitations, dizziness,unilateral leg swelling, calf muscle pain. Patient also denies cocaine or other stimulant use, history of DVT or PE, recent immobilization, or history of cancer. ED Past Medical Hx - Past Medical History Previous Medical History?: Yes Hx Hypertension: Yes Hx Arthritis: Yes Additional medical history: palpitations, ovarian cysts - Surgical History Past Surgical History?: Yes Additional Surgical History: c section,tubaligation - Social History Smoking Status: Current Every Day Smoker Substance Use Type: Prescribed - Medications Home Medications: Home Medications Medication Instructions Recorded Confirmed Last Taken Type Hydrochlorothiazide [HCTZ] 25 mg PO QDAY #30 tablet 01/20/18 Unknown Rx Metoprolol [Lopressor TAB] 12.5 mg PO BID #30 tablet 01/20/18 Unknown Rx HYDROcodone/APAP 5-325 [[place] 1 each PO Q6HR PRN #7 tablet 02/06/18 Unknown Rx 5/325] ED Review of Systems ROS: Stated complaint: PASSED OUT Other details as noted in HPI Constitutional: denies: fever ENT: denies: throat or neck pain Respiratory: denies: cough, shortness of breath Cardiovascular: reports chest pain Endocrine: denies unexplained weight loss or gain Gastrointestinal: denies: abdominal pain, nausea Genitourinary: denies: dysuria Musculoskeletal: denies: leg swelling Skin: denies: rash Neurological: denies: headache Hematological/Lymphatic: denies: easy bleeding or easy bruising Psych: denies sadness or hopelessness Physical Exam - Physical Exam Vital Signs: Vital Signs 02/07/18 16:29 Temperature 99.4 F Pulse Rate 80 Respiratory 20 Rate Blood Pressure 129/87 O2 Sat by Pulse 100 Oximetry Physical Exam: General: well-nourished, well-developed, no acute distress Head: Normocephalic, atraumatic Eyes: normal sclera ENT: Mucous membranes are pink and moist Neck: trachea midline, neck supple, No neck stiffness, no cervical adenopathy Respiratory: Breath sounds equal bilaterally, no wheezing, rales, or rhonchi Cardio: S1 and S2 present, no murmurs, rubs, gallops, capillary refill is brisk Abdomen: Normoactive bowel sounds, soft abdomen, no rigidity, no guarding or rebound tenderness Chest WALL/Back: No tenderness to palpation of the chest wall, no CVA tenderness with percussion Musc: No pitting edema Skin: No rash Neuro: no facial drooping, normal speech Psych: Normal affect ED Course Vital Signs 02/07/18 16:29 Temperature 99.4 F Pulse Rate 80 Respiratory 20 Rate Blood Pressure 129/87 O2 Sat by Pulse 100 Oximetry ED Medical Decision Making - Lab Data Result diagrams: 02/07/18 18:04 02/07/18 18:04 - Medical Decision Making The patient was seen and examined by myself. The patient is placed on a cafeteria monitor and continuous pulse ox. On initial evaluation, the patient was found to be in no distress. EKG was negative for findings suggestive of acute cardiac infarct. Labs and imaging are obtained. The patient is given a tablet of [place] for her pain. Chest x-ray is negative for pneumothorax, focal consolidation, pulmonary vascular congestion, pleural effusion, or other obvious acute cardiopulmonary disease process. Lab results were non-concerning including levels of troponin, WBC, hemoglobin, hematocrit, electrolytes, renal function. Medical records are reviewed and revealed that the patient received a CTA scan of the chest within the past week at this ED, which was negative for PE, Aortic injury, or other emergent cardiothoracic disease process. The patient was reevaluated and reported that their symptoms were markedly improved. As the patient has a ANA risk score less than 2, and a well's score less than 2, the patient is at low risk of ACS or pulmonary emboli etiology of their symptoms. The patient is stable for discharge with outpatient follow-up. The patient is given follow-up and return instructions. The patient expressed understanding and agreed with the plan. The patient is discharged in stable condition. Critical care attestation.: If time is entered above; I have spent that time in minutes in the direct care of this critically ill patient, excluding procedure time. ED Disposition Clinical Impression: Acute chest pain Disposition: - TO HOME OR SELFCARE Is pt being admited?: No Does the pt Need Aspirin: No Condition: Stable Instructions: Chest Pain (ED), Costochondritis (ED), Gastroesophageal Reflux Disease (ED) Referrals: PRIMARY CARE,MD [Primary Care Provider] - 3-5 Days Time of Disposition: 19:19
[2018-02-07 20:01] VITALS: BP 109/71
--- NOTE | 2018-02-07 20:24 | XRay Report ---
FINAL REPORT PROCEDURE: XR CHEST 1V AP TECHNIQUE: Chest radiograph anteroposterior view. CPT 73703 HISTORY: syncope COMPARISON: 01/19/2018 FINDINGS: Heart: Normal. Mediastinum/Vessels: Normal. Lungs/Pleural space: Normal. Bony thorax: No acute osseous abnormality. Life support devices: None. IMPRESSION: No acute cardiopulmonary abnormality.
== END 2018-02-07 20:03 | disposition home or self-care (01) ==
LOC: ED 16:26
DX: R07.9 Chest pain, unspecified (principal); R05 Cough; I10 Essential (primary) hypertension; F17.200 Nicotine dependence, unspecified, uncomplicated; M19.90 Unspecified osteoarthritis, unspecified site; Z98.51 Tubal ligation status; Z98.890 Other specified postprocedural states
CPT/HCPCS: 36415; 71045; 80048; 84484; 84703; 85025; 93005; 93010

== ENCOUNTER 2018-09-04 15:38 | Emergency (ER) | payer OTHER ==
[2018-09-04] MEDS ORDERED: NACL 0.9% 1000 ML 1,000 ML IV ONE (16:35)
[2018-09-04 17:23] LABS: Basophils % (Auto) 0.5 % (0.0-1.8); Eosinophils # (Auto) 0.1 K/mm3 (0.0-0.4); Eosinophils % (Auto) 1.5 % (0.0-4.3); Hematocrit 43.6 % (30.3-42.9); Hemoglobin 14.7 gm/dl (10.1-14.3); Lymphocytes # (Auto) 1.4 K/mm3 (1.2-5.4); Mean Corpuscular HGB Conc 34 % (30-34); Mean Corpuscular Volume 93 fl (79-97); Monocytes # (Auto) 0.8 K/mm3 (0.0-0.8); Monocytes % (Auto) 12.8 % (0.0-7.3); Platelet Count 258 K/mm3 (140-440); Red Blood Count 4.69 M/mm3 (3.65-5.03); Red Cell Distribution Width 14.2 % (13.2-15.2)
[2018-09-04 17:33] LABS: BUN/Creatinine Ratio 9; Blood Urea Nitrogen 6 mg/dL (7-17); Calcium 9.3 mg/dL (8.4-10.2); Hemolysis Index 9; INR 0.9 (0.87-1.13)
[2018-09-04 17:34] LABS: Partial Thromboplastin Time 26.8 Sec. (24.2-36.6)
--- NOTE | 2018-09-04 18:58 | Cat Scan Report ---
FINAL REPORT EXAM: CT HEAD/BRAIN WO CON HISTORY: injury TECHNIQUE: Axial helical imaging from the skullbase to the vertex. Comparison: None FINDINGS: There is no evidence of an acute intracranial process, intracranial hemorrhage or mass effect. The ventricles are normal size. The visualized portions of the orbits, paranasal and mastoid sinuses are unremarkable. There is no evidence of fracture. IMPRESSION: 1. No evidence of an acute intracranial process, intracranial hemorrhage or mass effect. 2. No evidence of fracture.
--- NOTE | 2018-09-04 19:13 | XRay Report ---
FINAL REPORT EXAM: XR CHEST ROUTINE 2V HISTORY: syncope TECHNIQUE: PA and lateral views of the chest Comparison: Chest x-ray dated February 07, [address] angiogram chest dated February 05, 2018 FINDINGS: There is hyperinflation consistent with COPD. This corresponds to the changes suggestive of pulmonary emphysema demonstrated on the CT chest dated February 05, 2018. There is no evidence of focal infiltrate, pneumothorax or pleural fluid collection. The cardiomediastinal silhouette is normal in appearance. The bony structures are unremarkable. IMPRESSION: 1. Evidence of COPD. 2. No evidence of an acute pulmonary process.
--- NOTE | 2018-09-04 19:22 | Emergency Department Report ---
ED Syncope HPI - General Chief Complaint: Syncope Stated Complaint: HEAD INJURY DUE TO FALL Time Seen by Provider: 09/04/18 16:33 Source: patient, family - History of Present Illness Initial Comments: 43-year-old female presents to the following syncopal episode at home. Patient admits to drinking 4 beers today. Patient states she got up out of her bed and walked into another room, patient states she began to feel lightheaded, she then passed out. Syncopal episode witnessed by her son. States she may have hit the back of her head. Denies headache. She also denies chest pain, shortness of breath, vomiting or diarrhea. Timing/Prior Episodes: single episode today Precipitating Factors: Positive: lightheadedness Loss of Consciousness: brief (seconds) Current Symptoms: back to normal - Related Data Allergies/Adverse Reactions: Allergies No Known Allergies Allergy (Verified 04/25/17 19:41) Home Medications: Ambulatory Orders hydroCHLOROthiazide [HCTZ] 25 mg PO QDAY #30 tablet 01/20/18 Omeprazole Magnesium [PriLOSEC Otc] 20 mg PO QDAY #14 tablet. 02/07/18 Ibuprofen [Motrin] 600 mg PO Q8H PRN #30 tablet 05/15/18 Metoprolol [Lopressor TAB] 25 mg PO BID #60 tablet 05/15/18 traMADol [Ultram 50 MG tab] 50 mg PO Q6HR PRN #20 tablet 05/15/18 ED Review of Systems ROS: Stated complaint: HEAD INJURY DUE TO FALL Other details as noted in HPI Comment: All other systems reviewed and negative Constitutional: denies: chills, fever Respiratory: denies: shortness of breath Cardiovascular: denies: chest pain Gastrointestinal: denies: nausea, vomiting, diarrhea Neurological: denies: headache ED Past Medical Hx - Past Medical History Previous Medical History?: Yes Hx Hypertension: Yes Hx Arthritis: Yes Additional medical history: palpitations, ovarian cysts - Surgical History Past Surgical History?: Yes Additional Surgical History: c section,tubaligation - Social History Smoking Status: Current Every Day Smoker Substance Use Type: Alcohol - Medications Home Medications: Home Medications Medication Instructions Recorded Confirmed Last Taken Type hydroCHLOROthiazide [HCTZ] 25 mg PO QDAY #30 tablet 01/20/18 05/15/18 05/15/18 Rx Omeprazole Magnesium [PriLOSEC Otc] 20 mg PO QDAY #14 tablet. 02/07/18 05/15/18 05/15/18 Rx Ibuprofen [Motrin] 600 mg PO Q8H PRN #30 tablet 05/15/18 Unknown Rx Metoprolol [Lopressor TAB] 25 mg PO BID #60 tablet 05/15/18 Unknown Rx traMADol [Ultram 50 MG tab] 50 mg PO Q6HR PRN #20 tablet 05/15/18 Unknown Rx ED Physical Exam - General Limitations: No Limitations General appearance: alert, in no apparent distress - Head Head exam: Present: atraumatic, normocephalic - Eye Eye exam: Present: normal appearance - ENT ENT exam: Present: mucous membranes moist - Neck Neck exam: Present: normal inspection - Respiratory Respiratory exam: Present: normal lung sounds bilaterally. Absent: respiratory distress - Cardiovascular Cardiovascular Exam: Present: regular rate, normal rhythm - GI/Abdominal GI/Abdominal exam: Present: soft. Absent: distended, tenderness - Extremities Exam Extremities exam: Present: normal inspection. Absent: pedal edema, calf tenderness - Neurological Exam Neurological exam: Present: alert, oriented X3 - Psychiatric Psychiatric exam: Present: normal affect, normal mood - Skin Skin exam: Present: warm, dry, intact, normal color. Absent: rash ED Course Vital Signs 09/04/18 09/04/18 16:11 19:31 Temperature 98.8 F 98.4 F Pulse Rate 91 H 92 H Respiratory 16 16 Rate Blood Pressure 109/78 130/95 [Left] O2 Sat by Pulse 100 99 Oximetry ED Medical Decision Making - Lab Data Result diagrams: 09/04/18 16:48 09/04/18 16:48 - EKG Data -: EKG Interpreted by [place] EKG shows normal: sinus rhythm, QRS complexes, ST-T waves Rate: normal - EKG Data Interpretation: no acute changes - Radiology Data Radiology results: report reviewed, image reviewed - Medical Decision Making 43-year-old female presents to ED following a syncopal episode after drinking 4 beers today. This is likely due to orthostatic hypotension in this patient reports she had been lying down and then got up suddenly. Patient with borderline low blood pressure upon arrival. EKG and labs unremarkable. Head CT negative. Patient has normal neuro exam. IV fluids given with improvement of her blood pressure. Patient is feeling much better and feels okay for discharge home. Son at bedside who accompanied patient home. Return precautions given. Outpatient follow-up advised with her PCP. - Differential Diagnosis orthostatic hypotension, arrythmia, intracranial bleed Critical care attestation.: If time is entered above; I have spent that time in minutes in the direct care of this critically ill patient, excluding procedure time. ED Disposition Clinical Impression: Syncope, Alcohol intoxication Disposition: DC-01 TO HOME OR SELFCARE Is pt being admited?: No Condition: Stable Instructions: Syncope (ED) Referrals: JESI CABAN [Other] - 3-5 Days Time of Disposition: 19:20
[2018-09-04 19:33] VITALS: BP 130/95
[2018-09-04 19:48] LABS: Bacteria,Urine 2+ /HPF (Negative); Bilirubin,Urine NEG (Negative); Blood,Urine NEG (Negative); Color,Urine Yellow (Yellow); Granular Casts,Urine 1 /LPF; Hyaline Casts,Urine 4 /LPF; Mucus,Urine 2+ /HPF; Protein,Urine <15 mg/dL mg/dL (Negative); RBC,Urine < 1.0 /HPF (0.0-6.0); Urobilinogen,Urine < 2.0 mg/dL (<2.0)
== END 2018-09-04 19:49 | disposition home or self-care (01) ==
LOC: ED 15:38
DX: S09.90XA Unspecified injury of head, initial encounter (principal); R55 Syncope and collapse; F10.120 Alcohol abuse with intoxication, uncomplicated; I10 Essential (primary) hypertension; M19.90 Unspecified osteoarthritis, unspecified site; F17.200 Nicotine dependence, unspecified, uncomplicated; Z98.51 Tubal ligation status; W18.09XA Striking against other object with subsequent fall, initial encounter; Y93.89 Activity, other specified; Y92.092 Bedroom in other non-institutional residence as the place of occurrence of the external cause; Y99.8 Other external cause status
CPT/HCPCS: 36415; 70450; 71046; 80048; 81001; 84484; 84702; 85025; 85610; 85730; 96360; 99285; G0480; J7030; 80320

== ENCOUNTER 2018-09-11 00:12 | Emergency (ER) | payer OTHER ==
[2018-09-11] MEDS ORDERED: TYLENOL PO ONE (00:42)
[2018-09-11] MEDS ORDERED: TYLENOL ONE (00:46)
[2018-09-11] MEDS ORDERED: NITRO-BID 2% TP ONE (01:30)
[2018-09-11] MEDS ORDERED: NORCO 5/325 PO ONE (01:30)
--- NOTE | 2018-09-11 01:35 | Emergency Department Report ---
HPI - General Chief Complaint: Chest Pain Time Seen by Provider: 09/11/18 01:20 - HPI HPI: Room 25 The patient is a 43-year-old male presenting with a chief complaint of cough and headache. The patient states last week she has symptoms which included a cough productive of yellow sputum and fever. The patient states 3 days ago she developed headache and subjective fever and chills sore throat and body aches. Patient states her chest started pounding today Location: [See above] Duration: [See above] Quality: Pounding Severity: 12/28 Modifying factors: [see above] Context: [see above] Mode of transportation: [not driving] ED Past Medical Hx - Past Medical History Hx Hypertension: Yes Hx Arthritis: Yes Additional medical history: palpitations, ovarian cysts, Anemia - Surgical History Additional Surgical History: c section, bilateral tubal ligation - Family History Family history: no significant - Social History Smoking Status: Current Every Day Smoker (1/2 pack per day) Substance Use Type: None (denies illicit drug use), Alcohol (occasional) - Medications Home Medications: Home Medications Medication Instructions Recorded Confirmed Last Taken Type hydroCHLOROthiazide [HCTZ] 25 mg PO QDAY #30 tablet 01/20/18 05/15/18 05/15/18 Rx Omeprazole Magnesium [PriLOSEC Otc] 20 mg PO QDAY #14 tablet. 02/07/1805/15/18 Rx Ibuprofen [Motrin] 600 mg PO Q8H PRN #30 tablet 05/15/18 Unknown Rx Metoprolol [Lopressor TAB] 25 mg PO BID #60 tablet 05/15/18 Unknown Rx traMADol [Ultram 50 MG tab] 50 mg PO Q6HR PRN #20 tablet 05/15/18 Unknown Rx Azithromycin [Zithromax Z-NE] 0 mg PO DAILY #6 tab 09/11/18 Unknown Rx Benzonatate [Tessalon Perles] 100 mg PO Q8HR #30 capsule 09/11/18 Unknown Rx HYDROcodone/APAP 5-325 [[place] 1 - 2 each PO Q6HR PRN #14 tablet 09/11/18 Unknown Rx 5/325] Ibuprofen [Motrin 800 MG tab] 800 mg PO Q8HR PRN #20 tablet 09/11/18 Unknown Rx ED Review of Systems ROS: Stated complaint: GENERAL ILLNESS Other details as noted in HPI Constitutional: fever (subjective), malaise Eyes: denies: eye pain ENT: throat pain, other (rhinorrhea) Respiratory: cough Cardiovascular: palpitations Endocrine: no symptoms reported Gastrointestinal: denies: abdominal pain Genitourinary: denies: dysuria Musculoskeletal: myalgia Neurological: headache Physical Exam - Physical Exam Vital Signs: Vital Signs 09/11/18 09/11/18 09/11/18 00:18 00:19 00:39 Temperature 99.0 F 99 F Pulse Rate 100 H 101 H 98 H Respiratory 18 18 20 Rate Blood Pressure 159/102 159/102 Blood Pressure 159/102 [Right] O2 Sat by Pulse 100 98 99 Oximetry Physical Exam: GENERAL: The patient is well-developed well-nourished female lying on stretcher not appearing to be in acute distress HEENT: Normocephalic. Atraumatic. Extraocular motions are intact. Patient has moist mucous membranes. NECK: Supple. No meningitic signs are noted. No nuchal rigidity. Trachea midline CHEST/LUNGS: Clear to auscultation. There is no respiratory distress noted. HEART/CARDIOVASCULAR: Regular. There is no tachycardia. There is no gallop rub or murmur. ABDOMEN: Abdomen is soft, nontender. Patient has normal bowel sounds. There is no abdominal distention. SKIN: There is no rash. There is no edema. There is no diaphoresis. NEURO: The patient is awake, alert, and oriented. The patient is cooperative. The patient has no focal neurologic deficits. The patient has normal speech. Cranial nerves II through XII grossly intact, no drift MUSCULOSKELETAL: There is no evidence of acute injury. ED Course Vital Signs 09/11/18 09/11/18 09/11/18 00:18 00:19 00:39 Temperature 99.0 F 99 F Pulse Rate 100 H 101 H 98 H Respiratory 18 18 20 Rate Blood Pressure 159/102 159/102 Blood Pressure 159/102 [Right] O2 Sat by Pulse 100 98 99 Oximetry ED Medical Decision Making - Lab Data Result diagrams: 09/11/18 01:36 09/11/18 01:36 Laboratory Tests 09/11/18 09/11/18 09/11/18 01:30 01:36 01:36 WBC 9.7 RBC 4.33 Hgb 13.8 Hct 39.7 MCV 92 MCH 32 MCHC 35 H RDW 14.3 Plt Count 199 Lymph % (Auto) 19.8 [place] % (Auto) 13.1 H Eos % (Auto) 1.5 Baso % (Auto) 0.5 Lymph # 1.9 [place] # 1.3 H Eos # 0.1 Baso # 0.1 Seg Neutrophils % 65.1 Seg Neutrophils # 6.3 Sodium 136 L Potassium 3.9 Chloride 102.2 Carbon Dioxide 21 L Anion Gap 17 BUN 11 Creatinine 0.7 Estimated GFR > 60 BUN/Creatinine Ratio 16 Glucose 96 Calcium 9.5 Magnesium Total Creatine Kinase CK-MB (CK-2) CK-MB (CK-2) Rel Index Troponin T HCG, Qual Influenza A (Rapid) Negative Influenza B (Rapid) Negative 09/11/18 09/11/18 09/11/18 01:36 01:36 01:36 WBC RBC Hgb Hct MCV MCH MCHC RDW Plt Count Lymph % (Auto) [place] % (Auto) Eos % (Auto) Baso % (Auto) Lymph # [place] # Eos # Baso # Seg Neutrophils % Seg Neutrophils # Sodium Potassium Chloride Carbon Dioxide Anion Gap BUN Creatinine Estimated GFR BUN/Creatinine Ratio Glucose Calcium Magnesium 2.20 Total Creatine Kinase 99 CK-MB (CK-2) 1.5 CK-MB (CK-2) Rel Index 1.5 Troponin T < 0.010 HCG, Qual Negative Influenza A (Rapid) Influenza B (Rapid) - EKG Data -: EKG Interpreted by Me EKG shows normal: sinus rhythm Rate: normal - EKG Data When compared to previous EKG there are: previous EKG unavailable Interpretation: other (no ischemic changes seen) - Radiology Data Radiology results: report reviewed (CT head), image reviewed (CT head, chest x- ray) interpreted by me: Chest x-ray-no focal infiltrate, no pneumothorax [facility] [address] [place] [address] Cat Scan Report Signed Patient: IGNACIA CUMMINGS MR#: [id number] : 1975 Acct:[id number] Age/Sex: 43 / F ADM Date: 09/11/18 Loc: ED Attending Dr: Ordering Physician: RONY MESSINA MD Date of Service: 09/11/18 Procedure(s): CT head/brain wo con Accession Number(s): [id number] cc: RONY MESSINA MD FINAL REPORT EXAM: CT HEAD/BRAIN WO CON HISTORY: headache TECHNIQUE: CT was performed from t he foramen magnum through the vertex in the axial plane without the use of intravenous contrast. PRIORS: None. FINDINGS: The alvarado/white matter attenuation pattern is normal. There is no mass lesion or mass effect. There are no abnormal extra-axial fluid collections. There is no evidence of acute intracranial hemorrhage or infarct. The ventricles are of normal size and configuration. The skull and orbits are unremarkable. The visualized paranasal sinuses are clear. IMPRESSION: Normal CT of the head. Transcribed By: ML Dictated By: JAN BARFIELD MD Electronically Authenticated By: JAN BARFIELD MD Signed Date/Time: 09/11/18235 DD/ 4 TD/TT: 09/11/18234 - Differential Diagnosis pneumonia, bronchitis, sinusitis,URI, influenza Critical care attestation.: If time is entered above; I have spent that time in minutes in the direct care of this critically ill patient, excluding procedure time. ED Disposition Clinical Impression: Acute bronchitis, URI (upper respiratory infection), Headache Disposition: TO HOME OR SELFCARE Is pt being admited?: No Does the pt Need Aspirin: No Condition: Stable Instructions: Acute Bronchitis (ED) Additional Instructions: Return to the emergency department immediately should you develop worsening symptoms, fever, inability to tolerate food or liquid or any other concerns. Prescriptions: Azithromycin [Zithromax Z-NE] 0 mg PO DAILY #6 tab Benzonatate [Tessalon Perles] 100 mg PO Q8HR #30 capsule HYDROcodone/APAP 5-325 [[place] 5/325] 1 - 2 each PO Q6HR PRN #14 tablet PRN Reason: Pain Ibuprofen [Motrin 800 MG tab] 800 mg PO Q8HR PRN #20 tablet PRN Reason: Pain, Moderate (4-6) Referrals: ALMA ROSA STAPLETON MD [Primary Care Provider] - 3-5 Days Time of Disposition: 03:09
[2018-09-11 01:38] VITALS: BP 126/81
[2018-09-11 01:51] LABS: Basophils # (Auto) 0.1 K/mm3 (0.0-0.1); Basophils % (Auto) 0.5 % (0.0-1.8); Eosinophils # (Auto) 0.1 K/mm3 (0.0-0.4); Eosinophils % (Auto) 1.5 % (0.0-4.3); Hematocrit 39.7 % (30.3-42.9); Hemoglobin 13.8 gm/dl (10.1-14.3); Lymphocytes # (Auto) 1.9 K/mm3 (1.2-5.4); Lymphocytes % (Auto) 19.8 % (13.4-35.0); Mean Corpuscular HGB Conc 35 % (30-34); Mean Corpuscular Volume 92 fl (79-97); Monocytes # (Auto) 1.3 K/mm3 (0.0-0.8); Monocytes % (Auto) 13.1 % (0.0-7.3); Platelet Count 199 K/mm3 (140-440); Red Blood Count 4.33 M/mm3 (3.65-5.03); Red Cell Distribution Width 14.3 % (13.2-15.2)
[2018-09-11 02:09] LABS: BUN/Creatinine Ratio 16; Blood Urea Nitrogen 11 mg/dL (7-17); Calcium 9.5 mg/dL (8.4-10.2); Hemolysis Index 9
[2018-09-11 02:15] LABS: Creatine Kinase MB 1.5 ng/mL (0.0-4.0)
--- NOTE | 2018-09-11 02:36 | Cat Scan Report ---
FINAL REPORT EXAM: CT HEAD/BRAIN WO CON HISTORY: headache TECHNIQUE: CT was performed from the foramen magnum through the vertex in the axial plane without th e use of intravenous contrast. PRIORS: None. FINDINGS: The alvarado/white matter attenuation pattern is normal. There is no mass lesion or mass effect. There ar e no abnormal extra-axial fluid collections. There is no evidence of acute intracranial hemorrhage or infarct. The ventricles are of normal size and configuration. The skull and orbits are unremarkable . The visualized paranasal sinuses are clear. IMPRESSION: Normal CT of the head.
--- NOTE | 2018-09-11 03:29 | XRay Report ---
FINAL REPORT EXAM: XR CHEST ROUTINE 2V HISTORY: cough TECHNIQUE: 2 views of the chest. PRIORS: 09/04/2018 FINDINGS: The cardiomediastinal silhouette appears normal. The lungs are clear. The bones and soft tissues are unremarkable. IMPRESSION: No evidence of acute cardiopulmonary disease
== END 2018-09-11 03:23 | disposition home or self-care (01) ==
LOC: ED 00:12
DX: J20.9 Acute bronchitis, unspecified (principal); J06.9 Acute upper respiratory infection, unspecified; I10 Essential (primary) hypertension; M19.90 Unspecified osteoarthritis, unspecified site; F17.200 Nicotine dependence, unspecified, uncomplicated
CPT/HCPCS: 36415; 70450; 71046; 80048; 82550; 82553; 83735; 84484; 84703; 85025; 87400; 93005; 93010

== ENCOUNTER 2019-03-10 04:12 | Emergency (ER) | payer OTHER ==
[2019-03-10 04:16] VITALS: BP 138/92
[2019-03-10] MEDS ORDERED: BICILLIN L-A IM ONE (04:38)
[2019-03-10] MEDS ORDERED: ULTRAM PO ONE (04:38)
[2019-03-10] MEDS ORDERED: LIDOCAINE VISCOUS 2% PO ONE (04:38)
--- NOTE | 2019-03-10 04:44 | Emergency Department Report ---
ED ENT HPI - General Chief complaint: Sore Throat Stated complaint: THROAT HURTS Time Seen by Provider: 03/10/19 04:37 Source: patient Mode of arrival: Ambulatory Limitations: No Limitations - History of Present Illness Initial comments: 43-year-old -[place] female presents to the emergency room for sore throat since Friday. Patient reports his pain with swallowing didn't denies any nausea vomiting and subjective fever. MD complaint: sore throat, difficulty swallowing Onset/Timin Severity scale (0 -10): 10 Quality: aching, sharp Consistency: constant Improves with: none Worsens with: swallowing Associated Symptoms: pain with swallowing, sore throat - Related Data Previous Rx's Medication Instructions Recorded Last Taken Type hydroCHLOROthiazide [HCTZ] 25 mg PO QDAY #30 tablet 01/20/18 05/15/18 Rx Omeprazole Magnesium [PriLOSEC Otc] 20 mg PO QDAY #14 tablet. 02/07/18 05/15/18 Rx Ibuprofen [Motrin] 600 mg PO Q8H PRN #30 tablet 05/15/18 Unknown Rx Metoprolol [Lopressor TAB] 25 mg PO BID #60 tablet 05/15/18 Unknown Rx traMADol [Ultram 50 MG tab] 50 mg PO Q6HR PRN #20 tablet 05/15/18 Unknown Rx Azithromycin [Zithromax Z-NE] 0 mg PO DAILY #6 tab 09/11/18 Unknown Rx Benzonatate [Tessalon Perles] 100 mg PO Q8HR #30 capsule 09/11/18 Unknown Rx HYDROcodone/APAP 5-325 [[place] 1 - 2 each PO Q6HR PRN #14 tablet 09/11/18 Unknown Rx 5/325] Ibuprofen [Motrin 800 MG tab] 800 mg PO Q8HR PRN #20 tablet 09/11/18 Unknown Rx Ibuprofen [Motrin 600 MG tab] 600 mg PO Q8H PRN #15 tablet 03/10/19 Unknown Rx Allergies Allergy/AdvReac Type Severity Reaction Status Date / Time No Known Allergies Allergy Verified 04/25/17 19:41 ED Dental HPI - General Chief complaint: Sore Throat Stated complaint: THROAT HURTS Time Seen by Provider: 03/10/19 04:37 Source: patient Mode of arrival: Ambulatory Limitations: No Limitations - Related Data Previous Rx's Medication Instructions Recorded Last Taken Type hydroCHLOROthiazide [HCTZ] 25 mg PO QDAY #30 tablet 01/20/18 05/15/18 Rx Omeprazole Magnesium [PriLOSEC Otc] 20 mg PO QDAY #14 tablet. 02/07/18 05/15/18 Rx Ibuprofen [Motrin] 600 mg PO Q8H PRN #30 tablet 05/15/18 Unknown Rx Metoprolol [Lopressor TAB] 25 mg PO BID #60 tablet 05/15/18 Unknown Rx traMADol [Ultram 50 MG tab] 50 mg PO Q6HR PRN #20 tablet 05/15/18 Unknown Rx Azithromycin [Zithromax Z-NE] 0 mg PO DAILY #6 tab 09/11/18 Unknown Rx Benzonatate [Tessalon Perles] 100 mg PO Q8HR #30 capsule 09/11/18 Unknown Rx HYDROcodone/APAP 5-325 [[place] 1 - 2 each PO Q6HR PRN #14 tablet 09/11/18 Unknown Rx 5/325] Ibuprofen [Motrin 800 MG tab] 800 mg PO Q8HR PRN #20 tablet 09/11/18 Unknown Rx Ibuprofen [Motrin 600 MG tab] 600 mg PO Q8H PRN #15 tablet 03/10/19 Unknown Rx Allergies Allergy/AdvReac Type Severity Reaction Status Date / Time No Known Allergies Allergy Verified 04/25/17 19:41 ED Review of Systems ROS: Stated complaint: THROAT HURTS Other details as noted in HPI Comment: All other systems reviewed and negative Constitutional: fever ED Past Medical Hx - Past Medical History Previous Medical History?: Yes Hx Hypertension: Yes Hx Arthritis: Yes Additional medical history: palpitations, ovarian cysts, Anemia - Surgical History Past Surgical History?: Yes Additional Surgical History: c section, bilateral tubal ligation - Social History Smoking Status: Current Every Day Smoker Substance Use Type: Alcohol - Medications Home Medications: Home Medications Medication Instructions Recorded Confirmed Last Taken Type hydroCHLOROthiazide [HCTZ] 25 mg PO QDAY #30 tablet 01/20/18 05/15/18 05/15/18 Rx Omeprazole Magnesium [PriLOSEC Otc] 20 mg PO QDAY #14 tablet. 02/07/18 05/15/18 05/15/18 Rx Ibuprofen [Motrin] 600 mg PO Q8H PRN #30 tablet 05/15/18 Unknown Rx Metoprolol [Lopressor TAB] 25 mg PO BID #60 tablet 05/15/18 Unknown Rx traMADol [Ultram 50 MG tab] 50 mg PO Q6HR PRN #20 tablet 05/15/18 Unknown Rx Azithromycin [Zithromax Z-NE] 0 mg PO DAILY #6 tab 09/11/18 Unknown Rx Benzonatate [Tessalon Perles] 100 mg PO Q8HR #30 capsule 09/11/18 Unknown Rx HYDROcodone/APAP 5-325 [[place] 1 - 2 each PO Q6HR PRN #14 tablet 09/11/18 Unknown Rx 5/325] Ibuprofen [Motrin 800 MG tab] 800 mg PO Q8HR PRN #20 tablet 09/11/18 Unknown Rx Ibuprofen [Motrin 600 MG tab] 600 mg PO Q8H PRN #15 tablet 03/10/19 Unknown Rx ED Physical Exam - General Limitations: No Limitations General appearance: alert, in no apparent distress - Head Head exam: Present: atraumatic, normocephalic - Eye Eye exam: Present: normal appearance - Expanded ENT Exam Expanded Throat exam: Positive: tonsillar erythema, tonsillomegaly, tonsillar exudate - Neck Neck exam: Present: tenderness, full ROM, lymphadenopathy - Neurological Exam Neurological exam: Present: alert, oriented X3, normal gait - Psychiatric Psychiatric exam: Present: normal affect, normal mood - Skin Skin exam: Present: warm, dry, intact, normal color. Absent: rash ED Course Vital Signs 03/10/19 04:15 Temperature 98.5 F Pulse Rate 105 H Respiratory 16 Rate Blood Pressure 138/92 O2 Sat by Pulse 98 Oximetry ED Medical Decision Making - Medical Decision Making 43-year-old female comes in for 5 day history of sore throat. Patient will be given penicillin G 1.2 million units IM this is lidocaine 15 mL and Tylenol for pain. Patient be discharged home with instructions to increase her fluid intake and continue with Tylenol and/or Motrin for pain management. Critical care attestation.: If time is entered above; I have spent that time in minutes in the direct care of this critically ill patient, excluding procedure time. ED Disposition Clinical Impression: Strep pharyngitis Disposition: DC-01 TO HOME OR SELFCARE Is pt being admited?: No Does the pt Need Aspirin: No Condition: Stable Instructions: Strep Throat (ED) Additional Instructions: Take pain medication as needed. Increase her water intake eventually as tolerated. Follow-up with the primary care provider if his symptoms persist or gets worse. Prescriptions: Ibuprofen [Motrin 600 MG tab] 600 mg PO Q8H PRN #15 tablet PRN Reason: Pain Referrals: VERONICA TAPIA MD [Primary Care Provider] - 3-5 Days Forms: Work/School Release Form(ED)
== END 2019-03-10 05:25 | disposition home or self-care (01) ==
LOC: ED 04:12
DX: J02.0 Streptococcal pharyngitis (principal); I10 Essential (primary) hypertension; F17.200 Nicotine dependence, unspecified, uncomplicated; M19.90 Unspecified osteoarthritis, unspecified site; Z86.2 Personal history of diseases of the blood and blood-forming organs and certain disorders involving the immune mechanism; Z98.51 Tubal ligation status; Z79.1 Long term (current) use of non-steroidal anti-inflammatories (NSAID); Z79.899 Other long term (current) drug therapy
CPT/HCPCS: 96372; 99282; J0561

== ENCOUNTER 2021-01-05 20:53 | Emergency (ER) | payer MEDICAID, OTHER ==
[2021-01-06] MEDS ORDERED: HYDROcodone/ACETAMINOPHEN 5-325 MG TAB PO STA (03:38)
[2021-01-06] MEDS ORDERED: cloNIDine 0.2 MG TAB PO STA (03:57)
--- NOTE | 2021-01-06 04:08 | Emergency Department Report ---
ED General Adult HPI - General Chief complaint: Dental/Oral Stated complaint: TONGUE PAIN/STOMACH PAIN Time Seen by Provider: 01/06/21 01:54 Source: patient Mode of arrival: Ambulatory Limitations: No Limitations - History of Present Illness Initial comments: 45-year-old female [facility] emerge department complaining of accidentally biting her tongue resulting in a laceration and has continued pain and throbbing to the area despite her attempts to get out of of pain. She tried to put BC powder directly on laceration which did not help to mitigate the pain she presents emergency department seeking for evaluation and treatment options. She reports no fever, chills, sweats reports no chest pain palpitation reports no nausea no vomiting. No hemoptysis no hematemesis no hematochezia. -: Sudden, days(s) (6) Radiation: non-radiation Severity scale (0 -10): 8 Quality: aching, dull Consistency: constant Improves with: none Worsens with: none Treatments Prior to Arrival: none - Related Data Previous Rx's Medication Instructions Recorded Last Taken Type hydroCHLOROthiazide [HCTZ] 25 mg PO QDAY #30 tablet 01/20/18 05/15/18 Rx Omeprazole Magnesium [PriLOSEC Otc] 20 mg PO QDAY #14 tablet. 02/07/18 05/15/18 Rx Ibuprofen [Motrin] 600 mg PO Q8H PRN #30 tablet 05/15/18 Unknown Rx Metoprolol [Lopressor TAB] 25 mg PO BID #60 tablet 05/15/18 Unknown Rx traMADoL [Ultram 50 MG tab] 50 mg PO Q6HR PRN #20 tablet 05/15/18 Unknown Rx Azithromycin [Zithromax Z-NE] 0 mg PO DAILY #6 tab 09/11/18 Unknown Rx Benzonatate [Tessalon Perles] 100 mg PO Q8HR #30 capsule 09/11/18 Unknown Rx HYDROcodone/APAP 5-325 [Metz 1 - 2 each PO Q6HR PRN #14 tablet 09/11/18 Unknown Rx 5/325] Ibuprofen [Motrin 800 MG tab] 800 mg PO Q8HR PRN #20 tablet 09/11/18 Unknown Rx Ibuprofen [Motrin 600 MG tab] 600 mg PO Q8H PRN #15 tablet 03/10/19 Unknown Rx Amoxicillin/Potassium Clav 1 each PO BID 10 Days #20 tablet 03/02/20 Unknown Rx [Augmentin 875-125 Tablet] Fluticasone [Flonase] 1 spray NS QDAY #1 bottle 03/02/20 Unknown Rx Neomycin/Polymyxin B/Hydrocort 4 drops QID 7 Days #1 drops.susp 03/02/20 Unknown Rx [Axrvoase-Fbyvxhjpl-Ua Ear Susp] Chlorhexidine Mouthwash [Peridex] 15 ml MM BID #1 bottle 01/06/21 Unknown Rx Lidocaine Viscous 2% 5 ml MM Q3H PRN #120 udc 01/06/21 Unknown Rx traMADoL [Ultram] 50 mg PO Q6HR PRN #20 tablet 01/06/21 Unknown Rx Allergies Allergy/AdvReac Type Severity Reaction Status Date / Time No Known Allergies Allergy Verified 01/06/21 04:47 ED Review of Systems ROS: Stated complaint: TONGUE PAIN/STOMACH PAIN Other details as noted in HPI ED Past Medical Hx - Past Medical History Previous Medical History?: Yes Hx Hypertension: Yes Hx Arthritis: Yes Additional medical history: palpitations, ovarian cysts, Anemia - Surgical History Past Surgical History?: No Additional Surgical History: c section, bilateral tubal ligation - Social History Smoking Status: Never Smoker Substance Use Type: None - Medications Home Medications: Home Medications Medication Instructions Recorded Confirmed Last Taken Type hydroCHLOROthiazide [HCTZ] 25 mg PO QDAY #30 tablet 01/20/18 05/15/18 05/15/18 Rx Omeprazole Magnesium [PriLOSEC Otc] 20 mg PO QDAY #14 tablet. 02/07/18 05/15/18 05/15/18 Rx Ibuprofen [Motrin] 600 mg PO Q8H PRN #30 tablet 05/15/18 Unknown Rx Metoprolol [Lopressor TAB] 25 mg PO BID #60 tablet 05/15/18 Unknown Rx traMADoL [Ultram 50 MG tab] 50 mg PO Q6HR PRN #20 tablet 05/15/18 Unknown Rx Azithromycin [Zithromax Z-NE] 0 mg PO DAILY #6 tab 09/11/18 Unknown Rx Benzonatate [Tessalon Perles] 100 mg PO Q8HR #30 capsule 09/11/18 Unknown Rx HYDROcodone/APAP 5-325 [Metz 1 - 2 each PO Q6HR PRN #14 tablet 09/11/18 Unknown Rx 5/325] Ibuprofen [Motrin 800 MG tab] 800 mg PO Q8HR PRN #20 tablet 09/11/18 Unknown Rx Ibuprofen [Motrin 600 MG tab] 600 mg PO Q8H PRN #15 tablet 03/10/19 Unknown Rx Amoxicillin/Potassium Clav 1 each PO BID 10 Days #20 tablet 03/02/20 Unknown Rx [Augmentin 875-125 Tablet] Fluticasone [Flonase] 1 spray NS QDAY #1 bottle 03/02/20 Unknown Rx Neomycin/Polymyxin B/Hydrocort 4 drops QID 7 Days #1 drops.susp 03/02/20 Unknown Rx [Gdgnvfdu-Wokkwinrh-Kd Ear Susp] Chlorhexidine Mouthwash [Peridex] 15 ml MM BID #1 bottle 01/06/21 Unknown Rx Lidocaine Viscous 2% 5 ml MM Q3H PRN #120 udc 01/06/21 Unknown Rx traMADoL [Ultram] 50 mg PO Q6HR PRN #20 tablet 01/06/21 Unknown Rx ED Physical Exam - General Limitations: No Limitations General appearance: alert, in no apparent distress - Head Head exam: Present: atraumatic, normocephalic - Eye Eye exam: Present: normal appearance - ENT ENT exam: Present: mucous membranes moist - Expanded ENT Exam Expanded Mouth exam: Present: laceration (Partial tongue laceration slight avulsion) 1 - Other (Laceration region) Throat exam: Positive: normal inspection - Neck Neck exam: Present: normal inspection - Respiratory Respiratory exam: Present: normal lung sounds bilaterally. Absent: respiratory distress - Cardiovascular Cardiovascular Exam: Present: regular rate, normal rhythm. Absent: systolic murmur, diastolic murmur, rubs, gallop - GI/Abdominal GI/Abdominal exam: Present: soft, normal bowel sounds - Extremities Exam Extremities exam: Present: normal inspection - Back Exam Back exam: Present: normal inspection - Neurological Exam Neurological exam: Present: alert, oriented X3 - Psychiatric Psychiatric exam: Present: normal affect, normal mood - Skin Skin exam: Present: warm, dry, intact, normal color. Absent: rash ED Course Vital Signs 01/06/21 01/06/2121 03:45 04:04 04:47 Temperature 98.2 F Pulse Rate 80 80 92 H Respiratory 18 18 Rate Blood Pressure 186/111 Blood Pressure 186/111 156/90 [Left] O2 Sat by Pulse 100 98 Oximetry ED Medical Decision Making - Medical Decision Making Blood pressure improved before discharge Critical care attestation.: If time is entered above; I have spent that time in minutes in the direct care of this critically ill patient, excluding procedure time. ED Disposition Clinical Impression: Tongue biting, Laceration of tongue Disposition: DC-01 TO HOME OR SELFCARE Is pt being admited?: No Does the pt Need Aspirin: No Condition: Stable Instructions: Mouth Laceration, [id number], Laceration Care, Adult Prescriptions: Lidocaine Viscous 2% 5 ml MM Q3H PRN #120 udc PRN Reason: Pain, Moderate (4-6) Chlorhexidine Mouthwash [Peridex] 15 ml MM BID #1 bottle traMADoL [Ultram] 50 mg PO Q6HR PRN #20 tablet PRN Reason: Pain Referrals: [facility] [Provider Group] - 3-5 Days PRIMARY CARE, [Primary Care Provider] - 3-5 Days
[2021-01-06 04:47] VITALS: BP 156/90
== END 2021-01-06 04:48 | disposition home or self-care (01) ==
LOC: ED 20:53
DX: S01.552A Open bite of oral cavity, initial encounter (principal); S01.512A Laceration without foreign body of oral cavity, initial encounter; I10 Essential (primary) hypertension; M19.91 Primary osteoarthritis, unspecified site; Z98.890 Other specified postprocedural states; Z98.51 Tubal ligation status; Z79.1 Long term (current) use of non-steroidal anti-inflammatories (NSAID); Z79.2 Long term (current) use of antibiotics; Z79.899 Other long term (current) drug therapy; X58.XXXA Exposure to other specified factors, initial encounter; Y93.89 Activity, other specified; Y92.89 Other specified places as the place of occurrence of the external cause; Y99.8 Other external cause status
CPT/HCPCS: 99282